=== PATIENT | female | born 1955 | race Caucasian/White ===

== ENCOUNTER → 2017-12-17 | Outpatient (CLI) | payer MEDICAID ==
[~2017-12-17] MED LIST: ACCUNEB SO1.25 MG/1 INH; ASA5UEC PO; ASPIR 8181 MG PO; ASPIRIN EC325 M1 PO; ASPIRIN EC81 M1 PO; ATORVASTATIN CA40 MG PO; B12INJ IM; BENADRYL25 MG PO; CARDIZEM CD120 MG PO; CARDIZEM CD180 MG PO; CARDIZEM120 MG PO; CARTIA XT180 M1 PO; CENTRUM SILVER1 EAC4 PO; CIPRO500 MG PO; CLEOCIN HCL150 MG PO; CLEOCIN HCL300 MG PO; CLONIDINE0.1 PO; COLESTIPOL HCL1 G1 PO; CYMBALTA30 MG PO; DIGESTIVE PROB1 EACH PO; DIPHEN/ATROP PO; DRAMAMINE50 MG PO; DULOXETINE HCL60 MG PO; ELIQUIS5 MG PO; FIBER350 GM PO; FIBER625 MG PO; GEMFIBROZIL 60600 M1 PO; GEMFIBROZIL 60600 MG PO; HYDROCODON-ACE1 EAC8 PO; HYDROCODONE-AP1 EAC6 PO; HYDROCODONE-APA1 TA1 PO; IBUPROFEN 400400 M1 PO; IMDUR 30 MG TAB30 M1 PO; JANUMET 50-1,01 EACH PO; KEPPRA 500 MG500 M1 PO; KEPPRA XR750 MG PO; KEPPRA1000 MG PO; LEVEMIR SUBQ; LOPERAMIDE 2 MG2 M1 PO; MAGNESIUM400 MG PO; MAGOX 400400 MG PO; MEDROL16 MG PO; MELATONIN3 MG PO; MELATONIN5 M1 PO; MELOXICAM7.5 MG PO; METFORMIN HCL500 MG PO; MOBIC15 MG PO; MOTION SICKNESS25 MG PO; NEURONTIN 300300 M1 PO; NEXIUM40 MG PO; NITROSTAT0.4 MG SL; NORCO 10-325 T1 EACH PO; NORCO 5-325 TA1 EACH PO; NOVOLOG100 UNIT/1 SUBQ; NYSTATIN 100,0015 G1; OMEPRAZOLE20 M2 PO; PERCOCET 5-3251 EACH PO; PHENERGAN 25 MG25 M1 PO; PHENERGAN50 MG RECTAL; PLAVIX 75 MG TA75 M1 PO; PREDNISONE 10 M10 MG PO; PRILOSEC 20 MG20 MG PO; PRINIVIL20 MG PO; PROBIOTIC1 EAC1 PO; PROMETHAZINE D480 ML; PROVENTIL HFA6.7 G1 IN; ROBAXIN 750 MG750 M1 PO; SINGULAIR 10 MG10 M1 PO; SINGULAIR 10 MG10 MG PO; SPIRIVA INH; TESSALON PERLE100 MG PO; THERA M PLUS T1 EAC2 PO; ULTRACET TABLET1 TAB PO; UNICOMPLEX M TA1 TA1 PO; VIMPAT150 MG PO; ZANTAC 150MG T150 M1 PO; ZESTORETIC 20-1 EAC3 PO; ZOCOR40 MG PO; ZOFRAN 4 MG ORAL4 MG PO; ZOFRAN ODT4 MG PO; ZPAK PO
== END ==
LOC: M.NUC 12-08 08:00
DX: K31.84 Gastroparesis (principal); I10 Essential (primary) hypertension; I25.10 Atherosclerotic heart disease of native coronary artery without angina pectoris; J44.9 Chronic obstructive pulmonary disease, unspecified; K21.9 Gastro-esophageal reflux disease without esophagitis; E78.5 Hyperlipidemia, unspecified; I21.3 ST elevation (STEMI) myocardial infarction of unspecified site; G47.33 Obstructive sleep apnea (adult) (pediatric); Z90.49 Acquired absence of other specified parts of digestive tract; Z86.73 Personal history of transient ischemic attack (TIA), and cerebral infarction without residual deficits; Z90.710 Acquired absence of both cervix and uterus; Z87.891 Personal history of nicotine dependence

== ENCOUNTER 2018-05-20 12:31 | Inpatient (IN) | payer MEDICAID ==
[~2018-05-20] VITALS: Ht 162.6 cm; Wt 80.3 kg
[2018-05-20] VITALS (11 sets, daily range): BP systolic 13–189; BP diastolic 60–102
[~2018-05-20 12:31] MED LIST changes: -CLEOCIN HCL150 MG PO; -COLESTIPOL HCL1 G1 PO; -DULOXETINE HCL60 MG PO; -ELIQUIS5 MG PO; -MEDROL16 MG PO
[2018-05-20] MEDS ORDERED: BENADRYL25 MG PO (13:20)
[2018-05-20] MEDS ORDERED: MEDROL16 MG PO (13:21)
[2018-05-20] MEDS ORDERED: COLESTIPOL HCL1 G1 PO (13:22)
[2018-05-20] MEDS ORDERED: DULOXETINE HCL60 MG PO (13:22)
[2018-05-20 13:23] LABS: HEMATOCRIT 40.3 % (37.0-47.0); HEMOGLOBIN 13.5 gm/dL (12.0-15.0); MCHC 33.4 g/dL (28.0-37.0); MCV 80.8 fL (80.0-100.0); MPV 9.3 fl. (7.2-11.1); NUCLEATED RBCS 0 /100WBC; PLATELET COUNT* 253 thou/uL (150-400); RBC 4.99 mil/uL (4.20-5.00); RDW-CV 14.4 % (10.5-14.5)
[2018-05-20 13:33] LABS: ANION GAP 15 mmol/L (7-16); APTT 20.7 Seconds (25.0-31.3); BUN 15 mg/dL (7-18); CHLORIDE 103 mmol/L (98-107); CO2 24 mmol/L (21-32); CREATININE 0.9 mg/dL (0.6-1.3); GLUCOSE 230 mg/dL (70-99); INR 1.1; PROTIME 10.6 Seconds (9.20-11.50); SODIUM 142 mmol/L (136-145)
[2018-05-20 13:35] LABS: POTASSIUM 2.8 mmol/L (3.5-5.1)
[2018-05-20 13:43] LABS: ALBUMIN 4.3 g/dL (3.4-5.0); ALKALINE PHOSPHATASE 118 U/L (46-116); LIPASE 90 U/L (73-393); MAGNESIUM 1.2 mg/dL (1.8-2.4); NT-PRO BRAIN NAT PEPTIDE 316 pg/mL (<300); SGOT 31 U/L (15-37); SGPT 35 U/L (30-65); TOTAL BILIRUBIN 0.4 mg/dL (<0.1-1.0); TOTAL PROTEIN 7.7 g/dL (6.4-8.2); TROPONIN-I LEVEL <0.06 ng/mL (<0.06)
[2018-05-20 14:18] LABS: PLATELET ESTIMATE ADEQUATE
[2018-05-20 14:33] LABS: BE -6.3 mmol/L (-2 to +3); PCO2 42.6 mmHg (35.0-45.0); PO2 136.1 mmHg (75.0-100.0)
--- NOTE | 2018-05-20 14:46 | EKG ---
[place] [address] ELECTROCARDIOGRAM REPORT Name: JUSTINO CEDEÑO Room: [address] ADM IN .R.#: [id number] Admission: 05/20/18 Attend Phys: Melissa Barros Discharge: Date of : 57 Report #: [id number] THIS REPORT FOR: //name// [facility] ED Test Date: 2018-05-20 Test Time: 13:16:57 Pat Name: JUSTINO CEDEÑO Department: Room: Gender: F Registered Nurse Obstetrics: Joesph HURST : 1955 Requested By: Major Santizo Order Number: [id number] MD: Harrison Dotson Measurements Intervals [place] Rate: 127 P: 62 MS: 103 QRS: 16 QRSD: 110 T: 63 QT: 407 QTc: 592 Interpretive Statements Sinus tachycardia with ventricular bigeminy Prolonged QT interval Compared to ECG 05/05/2017 06:04:54 pvc's now present Prolonged QT interval now present Electronically Signed On 05-20-2018 14:45:50 CDT by Harrison Dotson [email or web address] <ELECTRONICALLY SIGNED> By: Harrison Dotson MD, FAC 05/20/18 1445 1316 1316 Harrison Dotson MD, [facility] /EPI
[2018-05-20 21:12] LABS: ALBUMIN 4.1 g/dL (3.4-5.0); CALCIUM 8.3 mg/dL (8.5-10.1); CREATININE 0.7 mg/dL (0.6-1.3); MAGNESIUM 2.4 mg/dL (1.8-2.4); POTASSIUM 4.7 mmol/L (3.5-5.1); TOTAL BILIRUBIN 0.4 mg/dL (<0.1-1.0); TOTAL PROTEIN 7.5 g/dL (6.4-8.2)
[2018-05-21] VITALS (15 sets, daily range): BP systolic 115–164; BP diastolic 54–89
[2018-05-21 03:12] LABS: ANION GAP 13 mmol/L (7-16); BUN 17 mg/dL (7-18); CALCIUM 7.8 mg/dL (8.5-10.1); CHLORIDE 104 mmol/L (98-107); CHOLESTEROL 123 mg/dL (<200); CO2 23 mmol/L (21-32); CREATININE 0.6 mg/dL (0.6-1.3); GLUCOSE 216 mg/dL (70-99); HDL CHOLESTEROL 31 mg/dL (>40); LDL CHOLESTEROL 49 mg/dL (<100); MAGNESIUM 1.8 mg/dL (1.8-2.4); POTASSIUM 4.2 mmol/L (3.5-5.1); SODIUM 140 mmol/L (136-145); TRIGLYCERIDE 219 mg/dL (<150); VLDL 44 mg/dL (<40)
[2018-05-21 03:14] LABS: SERUM ASSESSMENT CLEAR
[2018-05-21 09:32] LABS: BE -2.4 mmol/L (-2 to +3); HCO3 22.7 mmol/L (22.0-26.0); PCO2 40.7 mmHg (35.0-45.0); PO2 76.7 mmHg (75.0-100.0); pH 7.365 (7.340-7.450)
[2018-05-22] VITALS (12 sets, daily range): BP systolic 119–163; BP diastolic 57–85
[2018-05-22 04:10] LABS: BE -2.8 mmol/L (-2 to +3); HCO3 22.2 mmol/L (22.0-26.0); PCO2 39.2 mmHg (35.0-45.0); PO2 106.1 mmHg (75.0-100.0)
[2018-05-22 04:18] LABS: ABSOLUTE LYMPHOCYTES 0.5 thou/uL (0.8-5.3); ABSOLUTE MONOCYTES 0.3 thou/uL (0.0-1.2); ABSOLUTE NEUTROPHILS 6.9 thou/uL (1.6-8.1); BASOPHILS 0.1 %; HEMATOCRIT 33.6 % (37.0-47.0); HEMOGLOBIN 11.6 gm/dL (12.0-15.0); MCH 27.8 pg (26.0-34.0); MCHC 34.5 g/dL (28.0-37.0); MCV 80.6 fL (80.0-100.0); MPV 9.2 fl. (7.2-11.1); NUCLEATED RBCS 0 /100WBC; POLYS 88.9 %; RBC 4.18 mil/uL (4.20-5.00); RDW-CV 14.6 % (10.5-14.5); WBC 7.7 thou/uL (4.0-11.0)
[2018-05-22 04:27] LABS: CALCIUM 7.4 mg/dL (8.5-10.1); CREATININE 0.6 mg/dL (0.6-1.3)
[2018-05-22 04:37] LABS: PLATELET COUNT* 152 thou/uL (150-400)
--- NOTE | 2018-05-22 07:46 | CON ---
[address] [address] CONSULTATION Name: JUSTINO CEDEÑO Room: [address] ADM IN M.R.#: [id number] Admission: 05/20/18 Attend Phys: Melissa Barros Discharge: Date of : 57 Report #: [id number] THIS REPORT FOR: //name// CC: Hilda Meyers DATE OF SERVICE: 05/21/2018 REFERRING PHYSICIAN: Dr. Meyers. CHIEF COMPLAINT: Respiratory failure. HISTORY OF PRESENT ILLNESS: The patient is a 62-year-old female with history of seizure disorder. She was doing well, returned home from shopping. Shortly thereafter, she began to experience swelling of her tongue. It got to the point where she was brought to the Emergency Room, she was intubated for airway protection. The patient is sedated on a propofol drip, not able to provide any information; so therefore, the rest of the document is provided by flipClass input. PAST MEDICAL HISTORY: Significant for chronic abdominal pain, cholelithiasis, history of colitis, coronary artery disease. She has had TIA in the past, history of seizure disorder. In addition to the above, she has history of rheumatoid arthritis, COPD, sleep apnea, hypertension, and gastroesophageal reflux disorder. ALLERGIES: CYCLOPIROX, MORPHINE, CONTRAST DYE, PENICILLIN. REVIEW OF SYSTEMS: Not obtainable. FAMILY HISTORY: Noncontributory for the patient's age. MEDICATIONS: Consist of Solu-Medrol, propofol, aerosol treatments with DuoNeb. Apparently, one of her home medications had been lisinopril, this has been discontinued. She had also been on metformin in the past and Cymbalta in the past. PHYSICAL EXAMINATION: VITAL SIGNS: Blood pressure 134/68; respiratory rate 14, nonlabored; pulse rate 78, regular; temperature 97.5 degrees. GENERAL APPEARANCE: She is sedated. Endotracheal tube is in place. It is secured. GENITOURINARY: Zeng catheter in place. HEAD: Atraumatic. EYES: Pupils are round, equal, [place] [address] CONSULTATION Name: JUSTINO CEDEÑO Room: [address] IN [facility].#: [id number] Admission: 05/20/18 Attend Phys: Melissa Barros Discharge: Date of : 57 Report #: [id number] ORAL CAVITY: Unable to visualize cavity, the tongue is markedly swollen. NOSE: Nasal passages are patent. NECK: There is no adenopathy. There is marked fullness of the neck, specifically on the left side, almost a mass feeling effect to it. There was no fluctuation. CHEST: Coarse rhonchi throughout. No wheezes. CARDIOVASCULAR: Regular rhythm. ABDOMEN: Soft. No organomegaly or tenderness. EXTREMITIES: Without edema. Pulses are equal bilaterally. SKIN: Warm and dry. LYMPHATICS: Negative. ASSESSMENT AND PLAN: 1. Respiratory failure, intubated for airway protection of a swollen tongue. 2. Angioedema, most likely. Could very well be medication related. 3. Fullness of her neck of undetermined etiology. 4. History of hypertension. 5. History of coronary artery disease. 6. Chronic obstructive pulmonary disease. PLAN: CT of the neck will be obtained. Repeat arterial blood gases and they will be repeated tomorrow as well. Chest x-ray will be obtained. LABORATORY DATA: Her chest x-ray today showed ET tube in adequate position. There is rotation. There may be some atelectatic changes in the right upper lung field and blunting of the left costophrenic angle. Once it is visualized, the tongue is receding. As far as the swelling is concerned, efforts then will be made for G-tube trials and hopefully successful weaning and extubation. It may be a few days down the road for this to be accomplished. In the interim, we will continue with supportive care. Could also begin and consider tube feedings at some point for nutritional purposes. Is and Os should be monitored as well to make sure the patient does not get fluid overloaded. <ELECTRONICALLY SIGNED> By: Fernando Jones MD 05/22/18 0746 0821 [id number] Jones MD /nt
--- NOTE | 2018-05-22 14:43 | EKG ---
[place] [address] ELECTROCARDIOGRAM REPORT Name: JUSTINO CEDEÑO Room: [address] ADM IN M.R.#: [id number] Admission: 05/20/18 Attend Phys: Melissa Barros Discharge: Date of : 57 Report #: [id number] THIS REPORT FOR: //name// [facility] Test Date: 2018-05-21 Test Time: 08:59:13 Pat Name: JUSTINO CEDEÑO Department: Room: [address] Gender: F Instructional Leader: : 1955 Requested By: Harrison Dotson Order Number: [id number] Felice MD: Michael Nugent Measurements Intervals [place] Rate: 80 P: 75 MN: 151 QRS: 34 QRSD: 101 T: 197 QT: 511 QTc: 590 Interpretive Statements Sinus rhythm Abnormal R-wave progression, early transition Abnrm T, probable ischemia, anterolateral lds Prolonged QT interval Compared to ECG 05/20/2018 13:16:57 Possible ischemia now present Sinus tachycardia no longer present Ventricular premature complex(es) no longer present Electronically Signed On 05-22-2018 14:43:23 CDT by Michael Nugent [email or web address] <ELECTRONICALLY SIGNED> By: Michael Nugent MD, FAC 05/22/18 1443 0859 0859 Michael Nugent MD, FAC /EPI
--- NOTE | 2018-05-22 18:19 | CON ---
[address] [address] CONSULTATION Name: JUSTINO CEDEÑO Room: [address] ADM IN M.R.#: [id number] Admission: 05/20/18 Attend Phys: Melissa Barros Discharge: Date of : 57 Report #: [id number] THIS REPORT FOR: //name// CC: Hilda Meyers DATE OF SERVICE: 05/20/2018 TYPE OF REPORT: Cardiology consultation. HISTORY OF PRESENT ILLNESS: The patient is a 62-year-old white female who I was asked to see in the hospital today as she would develop respiratory failure. The history is obtained from the and some old records. The patient is currently intubated and unresponsive to voice. Apparently, the patient has been seen here at [facility] on multiple occasions. She actually had a heart catheterization by Dr. Crystal from the right radial artery back in 2013 when she had an elevated troponin. No ventriculogram was performed. The LAD had had only a 15% stenosis. The remaining coronary arteries were unremarkable. She has been treated medically since that time. She has been followed by my partner, Dr. Nugent in the Cardiology Clinic. She had a previous loop recorder implanted. It is unclear whether any arrhythmias were noted. Her last echocardiogram in 2016 showed a normal ejection fraction with left atrial enlargement and aortic sclerosis. The patient just saw Dr. Rupesh in the Cardiology Clinic in February when she was doing well. She stays fairly active. She did have a previous stroke affecting her speech that she apparently recovered from. The patient was doing well until this morning. She apparently noted her tongue was swelling and she felt short of breath. She had no itching or rash. There is no wheezing. She was brought to the Emergency Room. Because of impending airway compromise, she was electively intubated in the Emergency Room. She was transferred to the ICU and Cardiology consultation was requested. Apparently, she has had no recent shortness of breath, chest pain, palpitation, syncope or edema. PAST MEDICAL HISTORY: Significant for previous hysterectomy, hernia repair, cholecystectomy, hypertension, hyperlipidemia, glucose intolerance, sleep apnea and previous stroke. CURRENT MEDICATIONS: Consists of long list. She is on aspirin, Lipitor, clonidine, Plavix, diltiazem, Cymbalta, Nexium, Neurontin, gemfibrozil, Keppra, lisinopril, meloxicam, metformin, Phenergan and Janumet. ALLERGIES: She has intolerance to PENICILLIN and MORPHINE. FAMILY HISTORY: [place] [address] CONSULTATION Name: JUSTINO CEDEÑO Room: [address] ADM IN .R.#: [id number] Admission: 05/20/18 Attend Phys: Melissa Barros Discharge: Date of : 57 Report #: [id number] SOCIAL HISTORY: She is . She and her live in [place], [place]. She is not working at this time. She quit smoking in 2010. Rarely drinks alcohol. REVIEW OF SYSTEMS: She has had no history of asthma. She does have sleep apnea but intermittently only uses CPAP. She has no history of liver disease, kidney disease, cancer, psychiatric illness. PHYSICAL EXAMINATION: GENERAL: Revealed an elderly female who was lying in bed. She was intubated at that time. VITAL SIGNS: She had a blood pressure of 170/90 and pulse is 110. She is afebrile. HEENT: She was anicteric. Conjunctivae pink. Mucous members moist. She had swelling of the tongue noted. NECK: Difficult to assess. CHEST: Without wheezes. CARDIOVASCULAR: Regular rate and rhythm. No significant murmur. ABDOMEN: Soft. EXTREMITIES: Had no edema. Dorsalis pedis pulse cannot be palpated. SKIN: Cool and dry. NEUROLOGICAL: She is withdrawals from painful stimuli. RADIOLOGICAL DATA: Her ECG on admission showed ventricular bigeminy with a nonspecific intraventricular conduction defect. Her chest x-ray on admission revealed normal heart size, clear lung osborne. LABORATORY DATA: Her previous lab work included a sodium 142, potassium is only 2.8, creatinine 0.9 and glucose 230. Liver function studies were normal. Magnesium is 1.8. Her remaining lab work shows troponin 0.06. White blood cell count 16 and hemoglobin 13.5. IMPRESSION AND RECOMMENDATIONS: 1. Anaphylactic reaction. The patient was with swelling of her tongue. I would stop her angiotensin-converting enzyme inhibitor. 2. Hypertension. The patient has been on clonidine, calcium deacon and angiotensin-converting enzyme inhibitor. 3. Diabetes. 4. Hyperlipidemia. The patient is on a statin drug. 5. History of sleep apnea. 6. Previous stroke. The patient is on Plavix. 7. Previous tobacco abuse. <ELECTRONICALLY SIGNED> By: Harrison Dotson MD, FACC 05/22/18 1819 1628 [id number] Dotson MD, FACC /nt
[2018-05-23] VITALS (14 sets, daily range): BP systolic 109–193; BP diastolic 54–104
[2018-05-23 11:56] LABS: ALBUMIN 3.3 g/dL (3.4-5.0); CALCIUM 7.8 mg/dL (8.5-10.1); CREATININE 0.5 mg/dL (0.6-1.3); TOTAL BILIRUBIN 0.6 mg/dL (<0.1-1.0); TOTAL PROTEIN 6.8 g/dL (6.4-8.2)
[2018-05-23 12:32] LABS: POTASSIUM 2.8 mmol/L (3.5-5.1)
[2018-05-24] VITALS (17 sets, daily range): BP systolic 110–138; BP diastolic 51–70
[2018-05-24 02:43] LABS: MAGNESIUM 3.2 mg/dL (1.8-2.4)
[2018-05-24 02:48] LABS: POTASSIUM 4.2 mmol/L (3.5-5.1)
[2018-05-24 09:00] LABS: BE -8.6 mmol/L (-2 to +3); HCO3 20.3 mmol/L (22.0-26.0)
[2018-05-24 09:01] LABS: PCO2 55.9 mmHg (35.0-45.0); pH 7.178 (7.340-7.450)
[2018-05-24 11:11] LABS: BE -3.9 mmol/L (-2 to +3); HCO3 20.1 mmol/L (22.0-26.0); PO2 89.9 mmHg (75.0-100.0); pH 7.402 (7.340-7.450)
[2018-05-25] VITALS (26 sets, daily range): BP systolic 14–208; BP diastolic 63–112
[2018-05-25 03:55] LABS: BE -3.7 mmol/L (-2 to +3); HCO3 19.8 mmol/L (22.0-26.0); PCO2 30.7 mmHg (35.0-45.0); pH 7.428 (7.340-7.450)
[2018-05-26] VITALS (16 sets, daily range): BP systolic 152–193; BP diastolic 66–99
[2018-05-26 03:52] LABS: HEMATOCRIT 37.4 % (37.0-47.0); HEMOGLOBIN 12.7 gm/dL (12.0-15.0); MCH 27.6 pg (26.0-34.0); MCV 81.1 fL (80.0-100.0); MPV 9.5 fl. (7.2-11.1); RBC 4.61 mil/uL (4.20-5.00); RDW-CV 14.8 % (10.5-14.5); WBC 11.2 thou/uL (4.0-11.0)
[2018-05-26 05:13] LABS: POTASSIUM 3.2 mmol/L (3.5-5.1)
[2018-05-26 05:19] LABS: CALCIUM 8.3 mg/dL (8.5-10.1); CREATININE 0.6 mg/dL (0.6-1.3)
[2018-05-26 11:48] LABS: CALCIUM 6.7 mg/dL (8.5-10.1); CREATININE 0.4 mg/dL (0.6-1.3); POTASSIUM 3.2 mmol/L (3.5-5.1)
[2018-05-26 12:00] LABS: BE -0.5 mmol/L (-2 to +3); HCO3 21.8 mmol/L (22.0-26.0); PCO2 29.3 mmHg (35.0-45.0); pH 7.489 (7.340-7.450)
[2018-05-26 12:03] LABS: PO2 57.9 mmHg (75.0-100.0)
[2018-05-26 18:25] LABS: BE 2.4 mmol/L (-2 to +3); HCO3 23.9 mmol/L (22.0-26.0); PCO2 28.5 mmHg (35.0-45.0); PO2 63.2 mmHg (75.0-100.0); pH 7.541 (7.340-7.450)
[2018-05-26 19:50] LABS: MAGNESIUM 1.7 mg/dL (1.8-2.4)
[2018-05-26 19:55] LABS: POTASSIUM 2.7 mmol/L (3.5-5.1)
[2018-05-27] VITALS (20 sets, daily range): BP systolic 109–180; BP diastolic 55–143
[2018-05-27 07:45] LABS: BE 4.5 mmol/L (-2 to +3); HCO3 26.8 mmol/L (22.0-26.0); PCO2 33.1 mmHg (35.0-45.0); PO2 83.1 mmHg (75.0-100.0); pH 7.526 (7.340-7.450)
[2018-05-27 07:51] LABS: ALBUMIN 2.9 g/dL (3.4-5.0); CREATININE 0.5 mg/dL (0.6-1.3); TOTAL BILIRUBIN 0.7 mg/dL (<0.1-1.0); TOTAL PROTEIN 7.1 g/dL (6.4-8.2)
[2018-05-27 07:52] LABS: CALCIUM 8.9 mg/dL (8.5-10.1); POTASSIUM 3.7 mmol/L (3.5-5.1)
[2018-05-27 16:27] LABS: CALCIUM 9.1 mg/dL (8.5-10.1); CREATININE 0.6 mg/dL (0.6-1.3); POTASSIUM 3.5 mmol/L (3.5-5.1)
[2018-05-28] VITALS (17 sets, daily range): BP systolic 119–161; BP diastolic 46–87
[2018-05-28 04:12] LABS: HEMATOCRIT 42.2 % (37.0-47.0); MCH 27.2 pg (26.0-34.0); MCHC 33.2 g/dL (28.0-37.0); MCV 81.8 fL (80.0-100.0); MPV 9.2 fl. (7.2-11.1); RBC 5.16 mil/uL (4.20-5.00); RDW-CV 14.7 % (10.5-14.5); WBC 9.2 thou/uL (4.0-11.0)
[2018-05-28 04:27] LABS: ALBUMIN 2.9 g/dL (3.4-5.0); CALCIUM 8.6 mg/dL (8.5-10.1); CREATININE 0.5 mg/dL (0.6-1.3); MAGNESIUM 1.7 mg/dL (1.8-2.4); POTASSIUM 3.7 mmol/L (3.5-5.1); TOTAL BILIRUBIN 0.8 mg/dL (<0.1-1.0); TOTAL PROTEIN 6.1 g/dL (6.4-8.2)
[2018-05-28 10:09] LABS: CREATININE 0.7 mg/dL (0.6-1.3); MAGNESIUM 2.2 mg/dL (1.8-2.4); POTASSIUM 3.8 mmol/L (3.5-5.1)
[2018-05-29] VITALS (18 sets, daily range): BP systolic 132–169; BP diastolic 53–87
[2018-05-29 00:39] LABS: CALCIUM 9.2 mg/dL (8.5-10.1); CREATININE 0.7 mg/dL (0.6-1.3); MAGNESIUM 1.6 mg/dL (1.8-2.4); POTASSIUM 3.3 mmol/L (3.5-5.1)
[2018-05-29 08:08] LABS: CALCIUM 8.8 mg/dL (8.5-10.1); CREATININE 0.6 mg/dL (0.6-1.3); MAGNESIUM 1.5 mg/dL (1.8-2.4); POTASSIUM 4.2 mmol/L (3.5-5.1)
[2018-05-29 14:39] LABS: CALCIUM 8.2 mg/dL (8.5-10.1); CREATININE 0.8 mg/dL (0.6-1.3); MAGNESIUM 1.9 mg/dL (1.8-2.4); POTASSIUM 4.4 mmol/L (3.5-5.1)
[2018-05-29 23:49] LABS: CALCIUM 8.4 mg/dL (8.5-10.1); CREATININE 0.8 mg/dL (0.6-1.3); POTASSIUM 4.7 mmol/L (3.5-5.1)
[2018-05-30 02:00] VITALS: BP 151/69
[2018-05-30 04:00] VITALS: BP 175/92
[2018-05-30 04:49] LABS: HEMATOCRIT 37.6 % (37.0-47.0); HEMOGLOBIN 12.3 gm/dL (12.0-15.0); MCH 26.6 pg (26.0-34.0); MCHC 32.8 g/dL (28.0-37.0); MCV 81.2 fL (80.0-100.0); RBC 4.63 mil/uL (4.20-5.00); RDW-CV 14.7 % (10.5-14.5); WBC 11.6 thou/uL (4.0-11.0)
[2018-05-30 04:56] LABS: CALCIUM 8.1 mg/dL (8.5-10.1); CREATININE 0.5 mg/dL (0.6-1.3); MAGNESIUM 1.4 mg/dL (1.8-2.4)
[2018-05-30 04:58] LABS: POTASSIUM 3.6 mmol/L (3.5-5.1)
[2018-05-30 06:00] VITALS: BP 179/82
[2018-05-30 07:00] VITALS: BP 175/81
[2018-05-30 12:31] LABS: CALCIUM 7.8 mg/dL (8.5-10.1); CREATININE 0.5 mg/dL (0.6-1.3); POTASSIUM 4.1 mmol/L (3.5-5.1)
[2018-05-30 18:18] LABS: CALCIUM 8.5 mg/dL (8.5-10.1); CREATININE 0.7 mg/dL (0.6-1.3); POTASSIUM 4.4 mmol/L (3.5-5.1)
[2018-05-30 20:00] VITALS: BP 137/62
[2018-05-31] VITALS: BP 133/59
[2018-05-31 04:00] VITALS: BP 146/68
[2018-05-31 04:59] LABS: HEMATOCRIT 35.4 % (37.0-47.0); HEMOGLOBIN 11.8 gm/dL (12.0-15.0); MCH 27.1 pg (26.0-34.0); MCHC 33.3 g/dL (28.0-37.0); MCV 81.3 fL (80.0-100.0); MPV 8.9 fl. (7.2-11.1); RBC 4.35 mil/uL (4.20-5.00); RDW-CV 14.7 % (10.5-14.5); WBC 6.4 thou/uL (4.0-11.0)
[2018-05-31 05:35] LABS: CREATININE 0.6 mg/dL (0.6-1.3); MAGNESIUM 1.8 mg/dL (1.8-2.4); POTASSIUM 3.8 mmol/L (3.5-5.1)
[2018-05-31 08:00] VITALS: BP 137/62
[2018-05-31 11:53] LABS: ALBUMIN 2.6 g/dL (3.4-5.0); CREATININE 0.7 mg/dL (0.6-1.3); POTASSIUM 3.6 mmol/L (3.5-5.1); TOTAL BILIRUBIN 0.4 mg/dL (<0.1-1.0); TOTAL PROTEIN 5.2 g/dL (6.4-8.2)
[2018-05-31 12:00] VITALS: BP 133/49
[2018-05-31 20:00] VITALS: BP 131/61
[2018-06-01] VITALS: BP 129/63
[2018-06-01 04:00] VITALS: BP 114/62
[2018-06-01 04:59] LABS: ALBUMIN 2.4 g/dL (3.4-5.0); CALCIUM 8.3 mg/dL (8.5-10.1); CREATININE 0.5 mg/dL (0.6-1.3); POTASSIUM 3.7 mmol/L (3.5-5.1); TOTAL BILIRUBIN 0.5 mg/dL (<0.1-1.0); TOTAL PROTEIN 5.2 g/dL (6.4-8.2)
[2018-06-01 05:01] LABS: ABSOLUTE LYMPHOCYTES 1.5 thou/uL (0.8-5.3); ABSOLUTE MONOCYTES 0.5 thou/uL (0.0-1.2); ABSOLUTE NEUTROPHILS 4.7 thou/uL (1.6-8.1); BASOPHILS 0.1 %; EOSINOPHILS 0.3 %; HEMATOCRIT 32.4 % (37.0-47.0); HEMOGLOBIN 10.8 gm/dL (12.0-15.0); MCH 27.6 pg (26.0-34.0); MCHC 33.5 g/dL (28.0-37.0); MCV 82.3 fL (80.0-100.0); MPV 9.1 fl. (7.2-11.1); NUCLEATED RBCS 0 /100WBC; PLATELET COUNT* 137 thou/uL (150-400); POLYS 69.6 %; RBC 3.93 mil/uL (4.20-5.00); RDW-CV 14.5 % (10.5-14.5); WBC 6.7 thou/uL (4.0-11.0)
[2018-06-01 08:00] VITALS: BP 164/77
[2018-06-01] MEDS ORDERED: ELIQUIS5 MG PO (10:37)
[2018-06-01] MEDS ORDERED: CLEOCIN HCL150 MG PO (10:40)
[2018-06-01] MEDS ORDERED: PREDNISONE 10 M10 MG PO (10:51)
[2018-06-01 10:52] VITALS: BP 164/77
--- NOTE | 2018-06-16 08:41 | CON ---
[address] [address] CONSULTATION Name: JUSTINO CEDEÑO Room: [address] IN M.R.#: [id number] Admission: 05/20/18 Attend Phys: Melissa Barros Discharge: 06/01/18 Date of : 57 Report #: [id number] THIS REPORT FOR: //name// CC: Hilda Meyers DATE OF SERVICE: 05/26/2018 REASON FOR ADMISSION: Angioedema. REASON FOR NEPHROLOGY CONSULTATION: Increased urine output. HISTORY OF PRESENT ILLNESS: This is a 62-year-old female whose has past medical history of coronary artery disease. She has history of seizures and she has history of hypertension who came in initially on 05/20/2018 with swelling of her tongue and she had to be intubated. It was believed that her angioedema was because of her long-term lisinopril, which was stopped and she was treated with steroids. She is currently still on the ventilator and weaning trials are in progress. She also was found to have left lower lobe pneumonia and is being treated for that. Nephrology today has been consulted because the urine output has been increasing and yesterday in the last 24 hours, urine output was around 6 liters, her sodium level is still maintaining, her sodium level this morning was 143. She is having problems with hypomagnesemia and hypokalemia, and that is being replaced. She is currently very agitated, so she does have a sitter by her side. Her blood pressure has also been hard to control and currently it is doing better and she is on labetalol and hydralazine as per primary team. REVIEW OF SYSTEMS: The patient is currently intubated and I cannot obtain review of systems. PAST MEDICAL AND SURGICAL HISTORY: Include history of coronary artery disease, CVA, seizures, fibromyalgia, erosive arthritis, COPD, sleeps with a CPAP, hypertension, hyperlipidemia, GERD, anxiety, hysterectomy. Gallbladder removal, hernia repair, heart monitor implantation, which was then removed. ALLERGIES: CICLOPIROX, MORPHINE, CONTRAST, PENICILLINS. HOME MEDICATIONS: Include diphenhydramine, methylprednisolone, colestipol, , nitroglycerin, Lactobacillus, methocarbamol, gabapentin, Nexium, diltiazem, Keppra, atorvastatin, gemfibrozil, clonidine, lisinopril. FAMILY HISTORY: Cannot obtain right now. SOCIAL HISTORY: As per the patient's chart, the patient was a former smoker, does not use [place] [address] CONSULTATION Name: JUSTINO CEDEÑO Room: [address] IN M.R.#: [id number] Admission: 05/20/18 Attend Phys: Melissa Barros Discharge: 06/01/18 Date of : 57 Report #: [id number] PHYSICAL EXAMINATION: VITAL SIGNS: Blood pressure is 178/76, pulse rate is 120, temperature is 37.4 and pulse ox is 100% on 35% FIO2, respiratory rate is 20. GENERAL: She is currently intubated and quite restless. HEAD, EYES, EARS, NOSE, AND THROAT: Mucous membranes cannot be assessed. She has an ET tube in place. NECK: There is no JVD. CHEST: Bilateral diminished breath sounds, but no crackles or wheezing. CARDIOVASCULAR: S1, S2 normal. No murmurs. She is tachycardic. ABDOMEN: Soft, nondistended, nontender. Bowel sounds are present. EXTREMITIES: There is no lower extremity edema, symmetrical extremities. SKIN: Warm and dry. NEUROLOGIC: She is currently restless. PSYCHIATRIC: Cannot assess right now. LABORATORY DATA: From today, WBC is 11.3, hemoglobin 12.7, platelet count is 220. Sodium was 143, potassium was 3.2, magnesium was 1.6, BUN was 17, creatinine was 0.6. Other labs were reviewed. IMAGING: Head CT and chest x-ray and other x-rays were reviewed. ASSESSMENT AND PLAN: 1. Polyuria: Diabetic acidosis is definitely a possibility. Urine sodium, although is quite high. Urine osmolality and serum osmolality need to be checked and these are pending. For now, we should put her on half normal saline 125 mL an hour to prevent hypernatremia. Discussed with nursing. Sodium should be checked every 8 hours and we should be notified if it is going above or more than 145. 2. Hypertension: Blood pressure has been little hard to control, but she is also very restless. Continue current medication regimen for now and we will adjust further medications when she is more calm. 3. Acute hypoxic respiratory failure. The patient is being treated for pneumonia. 4. Angioedema, likely because of lisinopril. The patient is being treated for that and looks like it is improving. Pulmonology is following the patient. 5. History of seizure disorder. 6. Hypomagnesemia, this is being replaced. 7. Hypokalemia, this is also being replaced. Both hypokalemia and hypomagnesemia is probably because of polyuria. Thank you for this consultation and we will continue to follow along with you. Discussed with the patient's nurses.. <ELECTRONICALLY SIGNED> By: Dana Tello MD 06/16/18 0841 1149 [id number] kira Herzog
== END 2018-06-01 11:58 | disposition home or self-care (01) | DRG 915 ==
LOC: M.ERS 12:31 → M.ICU 13:13 → M.TBA-ER 13:13 → M.ICU 13:28 → M.2W 05-30 17:51
PROVIDERS: Emergency Medicine Emergency Medical Services; Family Medicine; Internal Medicine; Internal Medicine Cardiovascular Disease; Internal Medicine Nephrology; Internal Medicine Pulmonary Disease; ADMIT Internal Medicine
DX: T88.6XXA Anaphylactic reaction due to adverse effect of correct drug or medicament properly administered, initial encounter (principal); J96.01 Acute respiratory failure with hypoxia; J15.9 Unspecified bacterial pneumonia; G92 Toxic encephalopathy; E87.0 Hyperosmolality and hypernatremia; E23.2 Diabetes insipidus; I69.351 Hemiplegia and hemiparesis following cerebral infarction affecting right dominant side; T78.3XXA Angioneurotic edema, initial encounter; I10 Essential (primary) hypertension; F03.90 Unspecified dementia, unspecified severity, without behavioral disturbance, psychotic disturbance, mood disturbance, and anxiety; I48.91 Unspecified atrial fibrillation; J20.8 Acute bronchitis due to other specified organisms; B95.61 Methicillin susceptible Staphylococcus aureus infection as the cause of diseases classified elsewhere; R35.8 Other polyuria; E78.00 Pure hypercholesterolemia, unspecified; M06.9 Rheumatoid arthritis, unspecified; J44.9 Chronic obstructive pulmonary disease, unspecified; E11.9 Type 2 diabetes mellitus without complications; G40.909 Epilepsy, unspecified, not intractable, without status epilepticus; K21.9 Gastro-esophageal reflux disease without esophagitis; G47.30 Sleep apnea, unspecified; F41.9 Anxiety disorder, unspecified; M79.7 Fibromyalgia; I25.10 Atherosclerotic heart disease of native coronary artery without angina pectoris; E83.42 Hypomagnesemia; E87.6 Hypokalemia; T46.4X5A Adverse effect of angiotensin-converting-enzyme inhibitors, initial encounter; Y92.89 Other specified places as the place of occurrence of the external cause; I25.2 Old myocardial infarction; Z90.710 Acquired absence of both cervix and uterus; Z90.49 Acquired absence of other specified parts of digestive tract; Z87.891 Personal history of nicotine dependence; Z79.02 Long term (current) use of antithrombotics/antiplatelets; Z79.82 Long term (current) use of aspirin; Z79.899 Other long term (current) drug therapy; Z88.5 Allergy status to narcotic agent; Z88.0 Allergy status to penicillin; Z88.8 Allergy status to other drugs, medicaments and biological substances; Z91.041 Radiographic dye allergy status; Z82.49 Family history of ischemic heart disease and other diseases of the circulatory system

== ENCOUNTER → 2018-12-13 | Outpatient (CLI) | payer MEDICAID ==
[~2018-12-13] MED LIST changes: +BENTYL 10 MG CA10 M1 PO; +CLEOCIN HCL150 MG PO; +COLESTIPOL HCL1 G1 PO; +DIPHENHIST50 MG PO; +DULOXETINE HCL60 MG PO; +ELIQUIS2.5 MG PO; +ELIQUIS5 MG PO; +HYDROCHLOROTH12.5 M1 PO; +LEVETIRACETAM1000 MG PO; +MEDROL16 MG PO; +MICROZIDE12.5 MG PO; +MOBIC7.5 MG PO
== END ==
LOC: M.LAB 08:51
DX: I48.91 Unspecified atrial fibrillation (principal)

== ENCOUNTER 2018-12-15 13:35 | Inpatient (IN) | payer MEDICAID ==
[~2018-12-15] VITALS: Ht 172.7 cm; Wt 67.1 kg
[~2018-12-15 13:35] MED LIST changes: -BENTYL 10 MG CA10 M1 PO; -DIPHENHIST50 MG PO; -ELIQUIS2.5 MG PO; -HYDROCHLOROTH12.5 M1 PO; -LEVETIRACETAM1000 MG PO; -MICROZIDE12.5 MG PO; -MOBIC7.5 MG PO
[2018-12-15 14:01] VITALS: BP 153/83
[2018-12-15] MEDS ORDERED: ELIQUIS2.5 MG PO (14:37)
[2018-12-15] MEDS ORDERED: JANUMET 50-1,01 EACH PO (14:38)
[2018-12-15 14:43] LABS: ABSOLUTE LYMPHOCYTES 1.3 thou/uL (0.8-5.3); ABSOLUTE MONOCYTES 0.4 thou/uL (0.0-1.2); ABSOLUTE NEUTROPHILS 4.4 thou/uL (1.6-8.1); BASOPHILS 0.5 %; EOSINOPHILS 0.6 %; HEMATOCRIT 38.3 % (37.0-47.0); HEMOGLOBIN 13.1 gm/dL (12.0-15.0); LYMPHOCYTES 21.8 %; MCH 25.7 pg (26.0-34.0); MCHC 34.3 g/dL (28.0-37.0); MONOCYTES 5.9 %; MPV 9.1 fl. (7.2-11.1); NUCLEATED RBCS 0 /100WBC; PLATELET COUNT* 207 thou/uL (150-400); POLYS 71.2 %; RDW-CV 15.7 % (10.5-14.5); WBC 6.1 thou/uL (4.0-11.0)
[2018-12-15 14:49] LABS: ANION GAP 11 mmol/L (7-16); BUN 14 mg/dL (7-18); CALCIUM 9.3 mg/dL (8.5-10.1); CHLORIDE 98 mmol/L (98-107); CO2 27 mmol/L (21-32); CREATININE 0.8 mg/dL (0.6-1.3); GLUCOSE 182 mg/dL (70-99); POTASSIUM 3.4 mmol/L (3.5-5.1); SODIUM 136 mmol/L (136-145)
[2018-12-15 14:52] LABS: PROTIME 9.9 Seconds (9.20-11.50)
[2018-12-15] MEDS ORDERED: BENTYL 10 MG CA10 M1 PO ×2 (14:53→15:09)
[2018-12-15] MEDS ORDERED: MICROZIDE12.5 MG PO (14:53)
[2018-12-15] MEDS ORDERED: DIPHENHIST50 MG PO ×2 (14:53→15:09)
[2018-12-15] MEDS ORDERED: PHENERGAN 25 MG25 M1 PO ×2 (14:54→15:11)
[2018-12-15] MEDS ORDERED: LOPERAMIDE 2 MG2 M1 PO (14:54)
[2018-12-15] MEDS ORDERED: MOBIC7.5 MG PO ×2 (14:54→15:11)
[2018-12-15 15:09] LABS: ALBUMIN 4.3 g/dL (3.4-5.0); ALKALINE PHOSPHATASE 121 U/L (46-116); LIPASE 152 U/L (73-393); MAGNESIUM 1.1 mg/dL (1.8-2.4); NT-PRO BRAIN NAT PEPTIDE 497 pg/mL (<300); SGOT 35 U/L (15-37); SGPT 44 U/L (30-65); TOTAL BILIRUBIN 0.3 mg/dL (<0.1-1.0); TOTAL PROTEIN 7.8 g/dL (6.4-8.2); TROPONIN-I LEVEL <0.06 ng/mL (<0.06)
[2018-12-15] MEDS ORDERED: HYDROCHLOROTH12.5 M1 PO (15:10)
[2018-12-15] MEDS ORDERED: LEVETIRACETAM1000 MG PO (15:10)
[2018-12-15 17:05] VITALS: BP 195/93
[2018-12-15 17:18] VITALS: BP 195/93
[2018-12-15 17:41] VITALS: BP 195/93
--- NOTE | 2018-12-15 18:45 | NUR ---
TRACING SR. BP ELEVATED. DR NOTIFIED. PT UNSURE OF HOME MEDICATIONS. NORVASC ORDERED. CALLED AND MEDICATIONS VERIFIED. ONLY ONE CORRECTION IN [place] [employer] NEEDED TO BE MADE. PT CONTINUES TO SAY SHE DOES NOT TAKE CLONIDINE PATCH AND MEDICATION DOES NOT SOUND FAMILIAR. PT C/O OF CHEST/BACK PAIN. PT SEEN BY DR. DIAZ. PRN FENTANYL ADMININSTERED PER MAR WITH PARTIAL RELIEF IN PAIN.
[2018-12-15 19:45] VITALS: BP 165/70
--- NOTE | 2018-12-15 21:37 | NUR ---
INITAL ASSESMENT COMPLETED AT 1945. PT DENIED CHEST PAIN, PRESSURE OR SHORTNESS OF AIR. INSTRUCTIONS GIVEN REGARDING NPO AFTER MIDNIGHT FOR POSSIBLE TESTS IN AM. CALL LIGHT IN REACH, PT USING APPROPRIATELY.
--- NOTE | 2018-12-15 23:04 | NUR ---
HOURLY ROUNDING DONE. PT DENIES CHEST PAIN, PRESSURE OR SHORTNESS OF AIR.
[2018-12-16] VITALS: BP 147/66
[2018-12-16 04:00] VITALS: BP 180/79
--- NOTE | 2018-12-16 04:17 | NUR ---
PT RANG CALL LIGHT AT 0410 AND REPORTED SHARP CHEST PAIN RATED AT 10. PT GIVEN 50 MCH FENTANYL IV. 12 LEAD EKG IN PROGRESS.
--- NOTE | 2018-12-16 05:03 | NUR ---
pt resting quietly at this time. pt rates pain at 2.
--- NOTE | 2018-12-16 06:38 | NUR ---
PT HAD ONE EPISODE OF CHEST PAIN AT 0415. PAIN RELIEVED BY 50 MCG FENTANYL IV AND 4 MG ZOFRAN IV.
[2018-12-16 08:10] VITALS: BP 184/79
[2018-12-16 08:32] LABS: CALCIUM 9.5 mg/dL (8.5-10.1); CREATININE 0.7 mg/dL (0.6-1.3)
--- NOTE | 2018-12-16 09:00 | NUR ---
REC'D REPORT FROM NOC RN, ASSUMED CARE OF PT APPROX 0730. A&OX4, ABLE TO COMMUNICATE NEEDS TO STAFF. PRINTING SPECIALIST IN PLACE, SR. O2 SATS 98% ON 2L/MIN NC. ASSESSMENT COMPLETED. VS OBTAINED. PT IS NPO STATUS FOR CARDIOLOGY CONSULT. CALL LIGHT IN REACH. HOURLY ROUNDING FOR SAFETY AND PT NEEDS.
[2018-12-16 09:28] LABS: ABSOLUTE LYMPHOCYTES 1.3 thou/uL (0.8-5.3); ABSOLUTE MONOCYTES 0.3 thou/uL (0.0-1.2); BASOPHILS 0.3 %; EOSINOPHILS 0.5 %; HEMATOCRIT 39.6 % (37.0-47.0); HEMOGLOBIN 13.4 gm/dL (12.0-15.0); LYMPHOCYTES 28.2 %; MCH 25.3 pg (26.0-34.0); MCHC 33.8 g/dL (28.0-37.0); MCV 74.7 fL (80.0-100.0); MPV 8.7 fl. (7.2-11.1); NUCLEATED RBCS 0 /100WBC; PLATELET COUNT* 204 thou/uL (150-400); RDW-CV 15.6 % (10.5-14.5); WBC 4.6 thou/uL (4.0-11.0)
--- NOTE | 2018-12-16 10:26 | EKG ---
[place] [address] ELECTROCARDIOGRAM REPORT Name: JUSTINO CEDEÑO Room: [address] ADM IN M.R.#: [id number] Admission: 12/15/18 Attend Phys: Jordan Dominguez Discharge: Date of : 57 Report #: [id number] THIS REPORT FOR: //name// [facility] ED Test Date: 2018-12-15 Test Time: 14:13:57 Pat Name: JUSTINO CEDEÑO Department: Room: [facility] Gender: F Piece Cutter: [facility] : 1955 Requested By: Mart Hughes Order Number: [id number] MD: Eric Chand Measurements Intervals [place] Rate: 95 P: 59 [place]: 156 QRS: 0 QRSD: 98 T: 56 QT: 433 QTc: 545 Interpretive Statements Sinus rhythm Abnormal R-wave progression, early transition Borderline repolarization abnormality Prolonged QT interval Compared to ECG 05/21/2018 08:59:13 Possible ischemia no longer present Electronically Signed On 12-16-2018 10:25:57 BALE OPENER by Eric Chand [email or web address] <ELECTRONICALLY SIGNED> By: Eric Chand MD, [facility] 12/16/18 1025 1413 1413 Eric Chand MD, [facility] /EPI
--- NOTE | 2018-12-16 10:31 | EKG ---
[place] [address] ELECTROCARDIOGRAM REPORT Name: JUSTINO CEDEÑO Room: [address] ADM IN M.R.#: [id number] Admission: 12/15/18 Attend Phys: Jordan Dominguez Discharge: Date of : 57 Report #: [id number] THIS REPORT FOR: //name// [facility] Test Date: 2018-12-16 Test Time: 04:20:24 Pat Name: JUSTINO CEDEÑO Department: Room: [address] Gender: F Pool Manager: JUAN FRANCISCO : 1955 Requested By: Osiel Bob Order Number: [id number] Felice MD: Eric Chand Measurements Intervals [place] Rate: 89 P: 17 [place]: 144 QRS: -16 QRSD: 97 T: 56 QT: 422 QTc: 514 Interpretive Statements Sinus rhythm Borderline left axis deviation Abnormal R-wave progression, early transition Nonspecific T abnormalities, lateral leads Prolonged QT interval Baseline wander in lead(s) V4 Compared to ECG 05/21/2018 08:59:13 T-wave abnormality now present Possible ischemia no longer present Electronically Signed On 12-16-2018 10:31:21 APPLICATION SECURITY ENGINEER by Eric Chand [email or web address] <ELECTRONICALLY SIGNED> By: Eric Chand MD, FACC 12/16/18 1031 0420 0420 Eric Chand MD, FACC /EPI
[2018-12-16 12:00] VITALS: BP 216/85
--- NOTE | 2018-12-16 12:55 | NUR ---
Pt sound asleep when CM went to assess, will f/u later
[2018-12-16 13:22] LABS: CHOLESTEROL 147 mg/dL (<200); HDL CHOLESTEROL 36 mg/dL (>40); LDL CHOLESTEROL 62 mg/dL (<100); TC:HDL 4.1 Ratio (Not establshd); TRIGLYCERIDE 248 mg/dL (<150); TROPONIN-I LEVEL <0.06 ng/mL (<0.06); VLDL 50 mg/dL (<40)
[2018-12-16 13:26] LABS: SERUM ASSESSMENT Clear
[2018-12-16 14:06] VITALS: BP 216/85
[2018-12-16 14:38] VITALS: BP 216/85
--- NOTE | 2018-12-16 15:40 | 2DMMODE ---
[place] [address] 2 D/M-MODE ECHOCARDIOGRAM Name: JUSTINO CEDEÑO Room: [facility] IN [facility]#: [id number] Admission: 12/15/18 Attend Phys: Osiel Bob Discharge: Date of : 57 Date of Service: 12/16/18 1540 Report #: [id number] THIS REPORT FOR: //name// APPROVED REPORT Study performed: 12/16/2018 14:17:16 EXAM: Comprehensive 2D, Doppler, and color-flow Echocardiogram Patient Location: In-Patient Room #: 222 Status: routine BSA: 1.80 HR: 107 bpm BP: 216/85 mmHg Rhythm: NSR Other Information Study Quality: Good Indications Dyspnea Chest Pain 2D Dimensions IVSd: 12.98 (7-11mm) LVOT Diam: 20.39 (18-24mm) LVDd: 50.79 mm PWd: 12.62 (7-11mm) Ascending Ao: 30.17 (22-36mm) LVDs: 32.79 (25-40mm) Aortic Root: 30.75 mm Volumes Left Atrial Volume (Systole) LA ESV Index: 20.70 mL/m2 Aortic Valve AoV Peak Gary.: 1.23 m/s AO Peak Gr.: 6.04 mmHg LVOT Max P.25 mmHg AO Mean Gr.: 3.67 mmHg LVOT Mean P.46 mmHg LVOT Max V: 0.90 m/s AO V2 VTI: 22.94 cm LVOT Mean V: 0.55 m/s TAL (VTI): 2.17 cm2 LVOT V1 VTI: 15.26 cm Mitral Valve MV Decel. Time: 94.38 ms MV PHT: 27.37 ms MVA (PHT): 8.04 [place]2 [place] [address] 2 D/M-MODE ECHOCARDIOGRAM Name: JUSTINO CEDEÑO Room: [address] IN ..#: [id number] Admission: 12/15/18 Attend Phys: Osiel Bob Discharge: Date of : 57 Date of Service: 12/16/18 1540 Report #: [id number] TDI Medial E' Gary.: 0.08 m/s Lateral E' Gary.: 0.08 m/s Pulmonary Valve PV Peak Gary.: 1.10 m/s PV Peak Gr.: 4.87 mmHg Left Ventricle The left ventricle is normal size. There is normal LV segmental wall motion. Borderline concentric left ventricular hypertrophy. Left ventricular systolic function is normal. The left ventricular ejection fraction is within the normal range. LVEF is 60%. Grade I - abnormal relaxation pattern. Right Ventricle The right ventricle is normal size. The right ventricular systolic function is normal. Atria The left atrium size is normal. The right atrium size is normal. Aortic Valve The aortic valve is normal in structure. No aortic regurgitation is present. There is no aortic valvular stenosis. Mitral Valve The mitral valve is normal in structure. There is no mitral valve regurgitation noted. No evidence of mitral valve stenosis. Tricuspid Valve The tricuspid valve is normal in structure. Unable to assess PA pressure. Trace tricuspid regurgitation. Pulmonic Valve The pulmonary valve is normal in structure. There is no pulmonic valvular regurgitation. Great Vessels The aortic root is normal in size. IVC is normal in size and collapses >50% [place] [address] 2 D/M-MODE ECHOCARDIOGRAM Name: JUSTINO CEDEÑO Room: [address] IN ..#: [id number] Admission: 12/15/18 Attend Phys: Osiel Bob Discharge: Date of : 57 Date of Service: 12/16/18 1540 Report #: [id number] Pericardium There is no pericardial effusion. <Conclusion> The left ventricle is normal size. Borderline concentric left ventricular hypertrophy. Left ventricular systolic function is normal. The left ventricular ejection fraction is within the normal range. LVEF is 60%. Grade I - abnormal relaxation pattern. The right ventricle is normal size. The left atrium size is normal. The aortic valve is normal in structure. The mitral valve is normal in structure. IVC is normal in size and collapses >50% with inspiration. There is no pericardial effusion. There is normal LV segmental wall motion. <ELECTRONICALLY SIGNED> By: Eric Chand MD, FACC 12/16/18 1540 1540 1540 Eric Chand MD, FACC /INF
--- NOTE | 2018-12-19 15:49 | CON ---
[address] [address] CONSULTATION Name: JUSTINO CEDEÑO Room: [address] IN M.R.#: [id number] Admission: 12/15/18 Attend Phys: Jordan Dominguez Discharge: 12/16/18 Date of : 57 Report #: [id number] THIS REPORT FOR: //name// CC: Hilda Bob DATE OF SERVICE: 12/16/2018 CARDIOLOGY CONSULTATION HISTORY OF PRESENT ILLNESS: The patient is a 63-year-old white female who I was asked to see in the hospital today after she complained of chest pain. The patient has an extensive and complicated past medical history. Unfortunately, not all of her old records are available. She has had multiple hospitalizations here at [facility]. She was actually seen by Dr. Crystal back in 2013 with chest pain. He performed a cardiac catheterization in 2013 that showed no significant coronary artery disease. Ventriculogram was not performed. In 2015, Dr. Nugent implanted a paraffiner here at [facility] using a [employer]. She apparently had had a previous stroke. The monitor was removed last year because the patient complained of the monitor causing chest pain. I actually saw her in consultation last April. The patient had swelling of her tongue and had to be intubated. She was eventually extubated and discharged. She is felt to have angioedema. She was eventually discharged home. The patient actually just saw my nurse practitioner 2 days ago. No changes were made in her medications at that time. The patient came to the Emergency Room yesterday complaining of left-sided chest pain. It is worse when she moved. She denied any trauma, is not related to food. She is admitted for further evaluation and treatment. PAST MEDICAL HISTORY: Significant for previous hysterectomy, hernia repair. She has a history of seizure disorder and is followed at [facility]. She has sleep apnea, but no longer uses CPAP. MEDICATIONS: At this time includes Eliquis because of a history of atrial fibrillation, Lipitor, Cardizem-CD, Catapres, Colestid, Bentyl, Cymbalta, Nexium, Neurontin, Lopid, Microzide, Keppra, Mobic, Robaxin, Phenergan. ALLERGIES: SHE HAS INTOLERANCE TO PENICILLIN, LISINOPRIL, AND MORPHINE. FAMILY HISTORY: Her mother had heart disease. SOCIAL HISTORY: She is . She and her live in [place]. She is not working at this time. Quit smoking years ago[place] [address] CONSULTATION Name: JUSTINO CEDEÑO Room: [address] IN M.R.#: [id number] Admission: 12/15/18 Attend Phys: Jordan Dominguez Discharge: 12/16/18 Date of : 57 Report #: [id number] REVIEW OF SYSTEMS: No history of stroke. No history of liver disease, kidney disease, cancer, psychiatric illness. PHYSICAL EXAMINATION: GENERAL: Revealed a middle-aged frail appearing female, lying in bed. She appeared in no distress. VITAL SIGNS: She has a blood pressure of 150/90, pulse is 90. She is afebrile. HEENT: She was anicteric, conjunctiva pink. Mucous membranes moist. NECK: Veins do not appear distended. Neck is supple. CHEST: Clear to auscultation. CARDIOVASCULAR: Regular rate and rhythm. ABDOMEN: Soft. EXTREMITIES: No edema. SKIN: Warm and dry. NEUROLOGIC: Nonfocal. Her ECG showed a sinus rhythm, nonspecific ST segment change. Her workup, she had an echocardiogram last April that showed an ejection fraction of 60%, left atrial enlargement, mild aortic sclerosis. She had a portable chest x-ray yesterday that showed evidence of atelectasis. LABORATORY DATA: She actually had lab work, sodium 137, creatinine 0.7. Liver function studies were normal. Troponins all 0.06. White blood cell count 4.6, hemoglobin 13.4. IMPRESSION AND RECOMMENDATIONS: 1. Chest pain. Reason unclear. Previous heart catheterization was normal. Suspect her chest pain is noncardiac. Recommend no further cardiac evaluation. 2. History of previous stroke. 3. History of atrial fibrillation. The patient is chronically anticoagulated. 4. History of sleep apnea. 5. Previous tobacco abuse. 6. Hyperlipidemia. The patient is on a statin drug. 7. Glucose intolerance. 8. History of seizure disorder. The patient is on Keppra. She is followed at [facility]. 9. History of sleep apnea. The patient no longer using her CPAP. <ELECTRONICALLY SIGNED> By: Harrison Doston MD, FACC 12/19/18 1549 1316 1800David Brooke Doston MD, FAC /nt
== END 2018-12-16 15:45 | disposition home or self-care (01) | DRG 313 ==
LOC: M.ERS 13:35 → M.TBA-ER 15:27 → M.2W 15:27
PROVIDERS: Family Medicine; ADMIT Internal Medicine
DX: R07.9 Chest pain, unspecified (principal); J98.11 Atelectasis; M06.9 Rheumatoid arthritis, unspecified; J44.9 Chronic obstructive pulmonary disease, unspecified; I10 Essential (primary) hypertension; E78.00 Pure hypercholesterolemia, unspecified; K21.9 Gastro-esophageal reflux disease without esophagitis; F41.9 Anxiety disorder, unspecified; G40.909 Epilepsy, unspecified, not intractable, without status epilepticus; E78.5 Hyperlipidemia, unspecified; I48.91 Unspecified atrial fibrillation; E74.39 Other disorders of intestinal carbohydrate absorption; I25.2 Old myocardial infarction; I69.392 Facial weakness following cerebral infarction; Z90.710 Acquired absence of both cervix and uterus; Z88.0 Allergy status to penicillin; Z88.8 Allergy status to other drugs, medicaments and biological substances; Z88.6 Allergy status to analgesic agent; Z91.041 Radiographic dye allergy status; Z87.891 Personal history of nicotine dependence; Z82.49 Family history of ischemic heart disease and other diseases of the circulatory system

== ENCOUNTER 2019-01-25 10:11 | Emergency (ER) | payer MEDICAID ==
[~2019-01-25] VITALS: Ht 172.7 cm; Wt 63.5 kg
[~2019-01-25 10:11] MED LIST changes: +BENTYL 10 MG CA10 M1 PO; +DIPHENHIST50 MG PO; +ELIQUIS2.5 MG PO; +HYDROCHLOROTH12.5 M1 PO; +LEVETIRACETAM1000 MG PO; +MICROZIDE12.5 MG PO; +MOBIC7.5 MG PO
[2019-01-25 10:43] LABS: ABSOLUTE EOSINOPHILS 0.1 thou/uL (0.0-0.7); ABSOLUTE LYMPHOCYTES 1.6 thou/uL (0.8-5.3); ABSOLUTE MONOCYTES 0.4 thou/uL (0.0-1.2); ABSOLUTE NEUTROPHILS 3.9 thou/uL (1.6-8.1); BASOPHILS 0.2 %; EOSINOPHILS 0.9 %; HEMATOCRIT 35.4 % (37.0-47.0); HEMOGLOBIN 11.9 gm/dL (12.0-15.0); LYMPHOCYTES 26.6 %; MCH 24.8 pg (26.0-34.0); MCHC 33.6 g/dL (28.0-37.0); MCV 73.7 fL (80.0-100.0); MONOCYTES 7.5 %; MPV 8.7 fl. (7.2-11.1); NUCLEATED RBCS 0 /100WBC; PLATELET COUNT* 244 thou/uL (150-400); POLYS 64.8 %; RDW-CV 14.5 % (10.5-14.5); WBC 5.9 thou/uL (4.0-11.0)
[2019-01-25 11:04] LABS: ALKALINE PHOSPHATASE 176 U/L (46-116); ANION GAP 10 mmol/L (7-16); BUN 10 mg/dL (7-18); CALCIUM 9.7 mg/dL (8.5-10.1); CHLORIDE 96 mmol/L (98-107); CO2 30 mmol/L (21-32); CREATININE 0.8 mg/dL (0.6-1.3); GLUCOSE 252 mg/dL (70-99); POTASSIUM 3.3 mmol/L (3.5-5.1); SGOT 52 U/L (15-37); SGPT 40 U/L (30-65); SODIUM 136 mmol/L (136-145); TOTAL BILIRUBIN 0.3 mg/dL (<0.1-1.0); TOTAL PROTEIN 8.7 g/dL (6.4-8.2); TROPONIN-I LEVEL <0.06 ng/mL (<0.06)
[2019-01-25] MEDS ORDERED: ZPAK PO (11:18)
[2019-01-25 12:08] LABS: URINE BILIRUBIN NEGATIVE (Negative); URINE BLOOD TRACE (Negative); URINE CLARITY CLEAR; URINE COLOR YELLOW; URINE GLUCOSE-RANDOM NEGATIVE (Negative); URINE KETONES NEGATIVE (Negative); URINE LEUKOCYTES-REFLEX 1+ (Negative); URINE NITRITE-REFLEX NEGATIVE (Negative); URINE PROTEIN 2+ (Negative); URINE SPECIFIC GRAVITY 1.015 (1.005-1.030); URINE UROBILINOGEN 0.2 E.U./dl (0.2-1.0)
[2019-01-25 12:21] LABS: SQUAMOUS 0-3 Few /LPF (0-3)
[2019-01-25 12:22] LABS: BACTERIA-REFLEX >30 Many /HPF (None Seen); CASTS None Seen /LPF (None Seen); CRYSTALS None Seen /LPF (None Seen); MUCUS 0-3 Light strn/LPF (None Seen); URINE RBC 0-2 Rare /HPF (0-2); URINE WBC-REFLEX 6-15 Few /HPF (0-5)
[2019-01-25] MEDS ORDERED: ZITHROMAX250 MG PO (13:15)
[2019-01-25 13:27] VITALS: BP 151/76
--- NOTE | 2019-01-25 16:09 | EKG ---
[place] [address] ELECTROCARDIOGRAM REPORT Name: JUSTINO CEDEÑO Room: [facility] [place] [id number] Admission: 01/25/19 Attend Phys: Discharge: 01/25/19 Date of : 57 Report #: [id number] THIS REPORT FOR: //name// [facility] ED Test Date: 2019-01-25 Test Time: 10:34:43 Pat Name: JUSTINO CEDEÑO Department: Room: Gender: F Panel Machine Setter: BRANDI : 1955 Requested By: Romana Solomon Order Number: [id number] MD: Eric Chand Measurements Intervals [place] Rate: 93 P: 28 PA: 187 QRS: -7 QRSD: 95 T: 36 QT: 394 QTc: 491 Interpretive Statements Sinus rhythm Consider left atrial enlargement Abnormal R-wave progression, early transition Borderline prolonged QT interval Compared to ECG 12/16/2018 04:20:24 T-wave abnormality no longer present Electronically Signed On 01-25-2019 16:09:34 EDUCATION DEPARTMENT REGISTRAR by Eric Chand [email or web address] <ELECTRONICALLY SIGNED> By: Eric Chand MD, [facility] 01/25/19 1609 1034 1034 Eric Chand MD, [facility] /EPI
== END 2019-01-25 13:27 | disposition home or self-care (01) ==
LOC: M.ERS 10:11
PROVIDERS: Nurse Practitioner Family
DX: I10 Essential (primary) hypertension (principal); J02.0 Streptococcal pharyngitis; B07.0 Plantar wart; M79.7 Fibromyalgia; M06.9 Rheumatoid arthritis, unspecified; J44.9 Chronic obstructive pulmonary disease, unspecified; E78.00 Pure hypercholesterolemia, unspecified; K21.9 Gastro-esophageal reflux disease without esophagitis; F41.9 Anxiety disorder, unspecified; Z90.710 Acquired absence of both cervix and uterus; Z90.49 Acquired absence of other specified parts of digestive tract; Z87.891 Personal history of nicotine dependence; Z88.8 Allergy status to other drugs, medicaments and biological substances; Z88.1 Allergy status to other antibiotic agents; Z88.5 Allergy status to narcotic agent; Z91.041 Radiographic dye allergy status; Z88.0 Allergy status to penicillin; Z86.73 Personal history of transient ischemic attack (TIA), and cerebral infarction without residual deficits

== ENCOUNTER 2019-06-16 22:41 | Emergency (ER) | payer MEDICAID ==
[~2019-06-16] VITALS: Ht 177.8 cm; Wt 69.4 kg
[~2019-06-16 22:41] MED LIST changes: +ZITHROMAX250 MG PO
[2019-06-16 23:05] LABS: ABSOLUTE EOSINOPHILS 0.1 thou/uL (0.0-0.7); ABSOLUTE LYMPHOCYTES 1.4 thou/uL (0.8-5.3); ABSOLUTE MONOCYTES 0.2 thou/uL (0.0-1.2); ABSOLUTE NEUTROPHILS 1.2 thou/uL (1.6-8.1); BASOPHILS 0.4 %; EOSINOPHILS 1.7 %; HEMATOCRIT 35.8 % (37.0-47.0); HEMOGLOBIN 12.4 gm/dL (12.0-15.0); LYMPHOCYTES 49.1 %; MCH 25.7 pg (26.0-34.0); MCHC 34.6 g/dL (28.0-37.0); MCV 74.4 fL (80.0-100.0); MONOCYTES 8.2 %; MPV 9.5 fl. (7.2-11.1); NUCLEATED RBCS 0 /100WBC; PLATELET COUNT* 153 thou/uL (150-400); POLYS 40.6 %; RBC 4.82 mil/uL (4.20-5.00); RDW-CV 15.9 % (10.5-14.5); WBC 2.9 thou/uL (4.0-11.0)
[2019-06-16 23:12] LABS: ANION GAP 13 mmol/L (7-16); BUN 12 mg/dL (7-18); CALCIUM 9.1 mg/dL (8.5-10.1); CHLORIDE 97 mmol/L (98-107); CO2 30 mmol/L (21-32); CREATININE 0.9 mg/dL (0.6-1.3); GLUCOSE 313 mg/dL (70-99); POTASSIUM 3.1 mmol/L (3.5-5.1); SODIUM 140 mmol/L (136-145)
[2019-06-16 23:21] LABS: ALKALINE PHOSPHATASE 182 U/L (46-116); SGOT 25 U/L (15-37); SGPT 39 U/L (30-65); TOTAL BILIRUBIN 0.3 mg/dL (<0.1-1.0); TOTAL PROTEIN 7.8 g/dL (6.4-8.2); TROPONIN-I LEVEL <0.06 ng/mL (<0.06)
[2019-06-16] MEDS ORDERED: LOMOTIL TABLET1 EACH PO (23:33)
[2019-06-16 23:34] LABS: APTT 26.1 Seconds (25.0-31.3)
[2019-06-17 00:11] LABS: URINE BILIRUBIN NEGATIVE (Negative); URINE BLOOD TRACE (Negative); URINE CLARITY CLEAR; URINE COLOR YELLOW; URINE GLUCOSE-RANDOM 3+ (Negative); URINE KETONES NEGATIVE (Negative); URINE LEUKOCYTES TRACE (Negative); URINE NITRITE POSITIVE (Negative); URINE PROTEIN NEGATIVE (Negative); URINE SPECIFIC GRAVITY <= 1.005 (1.005-1.030); URINE UROBILINOGEN 0.2 E.U./dl (0.2-1.0)
[2019-06-17 00:18] LABS: BACTERIA >30 Many /HPF (None Seen); CASTS None Seen /LPF (None Seen); CRYSTALS None Seen /LPF (None Seen); MUCUS 0-3 Light strn/LPF (None Seen); SQUAMOUS 0-3 Few /LPF (0-3); URINE RBC 0-2 Rare /HPF (0-2); URINE WBC 6-15 Few /HPF (0-5)
[2019-06-17] MEDS ORDERED: MACROBID 100 M100 M1 PO (01:57)
[2019-06-17] MEDS ORDERED: NORCO 7.5-3251 EACH PO (01:57)
[2019-06-17] MEDS ORDERED: ZOFRAN ODT4 MG PO (01:57)
[2019-06-17 02:12] VITALS: BP 178/71
--- NOTE | 2019-06-19 16:50 | EKG ---
[place] [address] ELECTROCARDIOGRAM REPORT Name: JUSTINO CEDEÑO Room: [facility]#: [id number] Admission: 06/16/19 Attend Phys: Discharge: 06/17/19 Date of : 57 Report #: [id number] THIS REPORT FOR: //name// [facility] ED Test Date: 2019-06-17 Test Time: 00:21:28 Pat Name: JUSTINO CEDEÑO Department: Room: Gender: F Sleeve Fixer: [place] : 1955 Requested By: Tati Shrestha Order Number: [id number] MD: Michael Nugent Measurements Intervals [place] Rate: 75 P: 34 [place]: 148 QRS: 1 QRSD: 109 T: 53 QT: 430 QTc: 481 Interpretive Statements Sinus rhythm Abnormal R-wave progression, early transition Nonspecific repol abnormality, diffuse leads Compared to ECG 01/25/2019 10:34:43 Early repolarization now present Electronically Signed On 06-19-2019 16:50:38 CDT by Michael Nugent [email or web address] <ELECTRONICALLY SIGNED> By: Michael Nugent MD, [facility] 06/19/19 1650 002 002 Michael Nugent MD, FACC /EPI
== END 2019-06-17 02:13 | disposition home or self-care (01) ==
LOC: M.ERS 22:41
PROVIDERS: Emergency Medicine
DX: N39.0 Urinary tract infection, site not specified (principal); I10 Essential (primary) hypertension; E11.9 Type 2 diabetes mellitus without complications; Z87.891 Personal history of nicotine dependence; Z88.8 Allergy status to other drugs, medicaments and biological substances; Z88.5 Allergy status to narcotic agent

== ENCOUNTER → 2019-08-01 | Outpatient (CLI) | payer MEDICAID ==
[~2019-08-01] MED LIST changes: +LOMOTIL TABLET1 EACH PO; +MACROBID 100 M100 M1 PO; +NORCO 7.5-3251 EACH PO
[2019-08-01 11:41] LABS: CALCIUM 9.5 mg/dL (8.5-10.1); CREATININE 0.8 mg/dL (0.6-1.3); POTASSIUM 4.4 mmol/L (3.5-5.1)
== END ==
LOC: M.LAB 10:59
PROVIDERS: Nurse Practitioner
DX: E87.6 Hypokalemia (principal)

== ENCOUNTER 2019-08-21 10:30 | Inpatient (IN) | payer MEDICAID ==
[2019-08-21] VITALS (12 sets, daily range): BP systolic 123–239; BP diastolic 57–104
[~2019-08-21] VITALS: Ht 172.7 cm; Wt 68.5 kg
[~2019-08-21 10:30] MED LIST changes: +CLONIDINE HCL0.2 M2 PO; -CLONIDINE0.1 PO
[2019-08-21 10:45] LABS: ABSOLUTE EOSINOPHILS 0.1 thou/uL (0.0-0.7); ABSOLUTE LYMPHOCYTES 2.1 thou/uL (0.8-5.3); ABSOLUTE MONOCYTES 0.4 thou/uL (0.0-1.2); ABSOLUTE NEUTROPHILS 2.2 thou/uL (1.6-8.1); BASOPHILS 0.5 %; EOSINOPHILS 2.5 %; HEMATOCRIT 41.3 % (37.0-47.0); HEMOGLOBIN 14.4 gm/dL (12.0-15.0); LYMPHOCYTES 43.2 %; MCHC 34.8 g/dL (28.0-37.0); MCV 77.7 fL (80.0-100.0); MONOCYTES 7.4 %; MPV 8.9 fl. (7.2-11.1); NUCLEATED RBCS 0 /100WBC; PLATELET COUNT* 220 thou/uL (150-400); POLYS 46.4 %; RBC 5.32 mil/uL (4.20-5.00); RDW-CV 14.1 % (10.5-14.5); WBC 4.8 thou/uL (4.0-11.0)
[2019-08-21 10:55] LABS: ANION GAP 13 mmol/L (7-16); BUN 14 mg/dL (7-18); CALCIUM 10.4 mg/dL (8.5-10.1); CHLORIDE 94 mmol/L (98-107); CO2 27 mmol/L (21-32); CREATININE 0.9 mg/dL (0.6-1.3); GLUCOSE 295 mg/dL (70-99); POTASSIUM 3.6 mmol/L (3.5-5.1); SODIUM 134 mmol/L (136-145)
[2019-08-21 10:56] LABS: PROTIME 10.4 Seconds (9.20-11.50)
[2019-08-21 11:04] LABS: ALBUMIN 5.1 g/dL (3.4-5.0); ALKALINE PHOSPHATASE 208 U/L (46-116); LIPASE 126 U/L (73-393); SGOT 55 U/L (15-37); SGPT 43 U/L (30-65); TOTAL BILIRUBIN 0.6 mg/dL (<0.1-1.0); TOTAL PROTEIN 9.5 g/dL (6.4-8.2); TROPONIN-I LEVEL <0.06 ng/mL (<0.06)
[2019-08-21 11:06] LABS: BE 0.2 mmol/L (-2 to +3); PCO2 32.2 mmHg (35.0-45.0); PO2 69.6 mmHg (75.0-100.0); pH 7.474 (7.340-7.450)
--- NOTE | 2019-08-21 12:25 | NUR ---
NUVIA NOTIFIED UPON PT RETURN FROM CT. PT WAS NOT CONNETED TO MONITOR SHE WAS NOT CONNECTED PRIOR TO GOING TO CT
--- NOTE | 2019-08-21 14:34 | EKG ---
[place] [address] ELECTROCARDIOGRAM REPORT Name: JUSTINO CEDEÑO Room: [place] [address] ADM IN ..#: [id number] Admission: 08/21/19 Attend Phys: Jordan Dominguez Discharge: Date of : 57 Report #: [id number] THIS REPORT FOR: //name// [facility] ED Test Date: 2019-08-21 Test Time: 10:28:44 Pat Name: JUSTINO CEDEÑO Department: Room: [facility] Gender: F Photo Lab Technician: DIDI : 1955 Requested By: Blanca Marcum Order Number: [id number] MD: Harrison Dotson Measurements Intervals [place] Rate: 91 P: 37 [place]: 144 QRS: 7 QRSD: 97 T: 55 QT: 392 QTc: 483 Interpretive Statements Sinus rhythm Probable left atrial enlargement Compared to ECG 06/17/2019 00:21:28 T wave changes no longer present Electronically Signed On 08-21-2019 14:34:19 CDT by Harrison Dotson [email or web address] <ELECTRONICALLY SIGNED> By: Harrison Dotson MD, [facility] 08/21/19 1434 1028 1028 Harrison Dotson MD, [facility] /EPI
--- NOTE | 2019-08-21 15:26 | NUR ---
ASSESSMENT COMPLETE. PT ADMITTED FROM ER WITH CHEST PAIN AND HTN. PT WAS IN OUTPATIENT STRESS TEST AND REPORTED CHEST PAIN AND ELEVATED BLOOD PRESSURE. PT GIVEN TYLENOL PER DR CHANG. IV FLUIDS STARTED. CARDIOLOGY CONSULTED, HEART CATH ORDERED, CONSENT COMPLETED AND IN CHART. PT CURRENTLY IN SECURITY TRAINER. ADMISSION COMPLETED. SEE ASSESSMENT AND VITALS FOR OTHER DETAILS. CALL LIGHT WITHIN REACH, WILL CONTINUE PLAN OF CARE
--- NOTE | 2019-08-21 17:00 | CARD ---
[address] [address] CARDIAC CATH REPORT Name: JUSTINO CEDEÑO Room: [address] IN [facility].#: [id number] Admission: 08/21/19 Attend Phys: Jordan Dominguez Discharge: Date of : 57 Report #: [id number] THIS REPORT FOR: //name// APPROVED REPORT Study performed: 08/21/2019 13:58:36 Patient Details Patient Status: In-Patient Room #: The patient is a 64 year-old female Event Personnel Harrison Dotson Technical Clerk, Aundrea Carias, Aniceto Milan Scrub, Arianna Reed RTR Monitor Procedures Performed Art Access - R femoral artery* Left Heart Cath w/or w/o Coronaries C Abdominal Aortography Hemostasis w/ Mynx Indication Chest pain Risk Factors Arterial Hypertension Admission/Lab Medications/Medications given during procedure Aspirin, Thrombin Inhibitors Procedure Narrative The patient was brought electively to the Cardiac Catheterization Laboratory and was prepped and draped in a sterile manner. The right femoral was infiltrated with 1% Lidocaine subcutaneous anesthesia. A 6fr Ultimum Sheath sheath was inserted into the RFA. Coronary angiography was performed using coronary diagnostic catheters. The right coronary system was accessed and visualized with a JR4 5fr catheter. The left coronary system was accessed and visualized with a JL4 5fr catheter. The left ventricle was accessed and visualized with a Pig 6fr catheter. Left ventricular/Aortic Valve gradient assessed via catheter pullback. Left ventriculogram was performed in WHEAT projection. An aortogram of the abdominal aorta was performed. Pre-demployment femoral angiogram was performed . Closure device was deployed with a 6 Fr MYNX 6F. The patient tolerated the procedure well and there were no complications associated with the procedure. A hematoma occurred. Attempt was made to perform procedure through the right radial artery. Puncture needle [place] [address] CARDIAC CATH REPORT Name: DAVIDSONJUSTINO BORDEN Room: [address] IN [facility].#: [id number] Admission: 08/21/19 Attend Phys: Jordan Dominguez Discharge: Date of : 57 Report #: [id number] blood, but the wire could not be advanced through the radial artery. Hemostasis was obtained and it was decided to perform the procedure from the right femoral artery. After placement of a Mynx on the femoral artery, the patient was noted to have a groin hematoma. Manual pressure was applied and a Zeng catheter was placed. Intraoperative Conscious Sedation Sedation start time: 1438 Case end Time: 1526 Fentanyl 50 mcg Versed 3 mg Fluoro Time: 6.9 minutes Dose: DAP 72879 cGycm2 967 mGy Contrast Type and Amount: Omnipaque 220 ml Coronary Angiography The patient's coronary anatomy is right dominant. Diagnostic Cath Left Main 0% stenosis LAD 50% mid stenosis noted Circumflex 0% stenosis Right Coronary 0% stenosis Left Ventriculography The left ventricle is normal in size with normal contractility. The left ventricular ejection fraction is estimated to be 60-65%. Left ventricular wall motion abnormalities are not present. There is no mitral insufficiency. Because of high blood pressure that was difficult to control, arteriogram of the left renal artery was performed using the JR4 catheter and no stenosis was noted. Arteriogram of the right renal artery was attempted, but the artery could not be cannulated. Therefore, an abdominal aortogram was performed with the pigtail artery which demonstrated no significant renal artery stenosis. Hemodynamics The aortic pressure is 183/61 mmHg with a mean of 89 mmHg. The left ventricular pressure is 189/10 mmHg with a mean of mmHg. The left ventricular end diastolic pressure is 16 mmHg. There was no gradient across the aortic valve upon pullback. Pullback from the left ventricle to the aorta revealed no gradient across the [place] [address] CARDIAC CATH REPORT Name: JUSTINO CEDEÑO Room: [address] IN [facility]#: [id number] Admission: 08/21/19 Attend Phys: Jordan Dominguez Discharge: Date of : 57 Report #: [id number] 1. 50% stenosis noted of the mid LAD 2. LVEF 60-65% 3. no significant renal artery stenosis 4. suspect noncardiac chest pain Recommendations Aggressive Medical Therapy <ELECTRONICALLY SIGNED> By: Harrison Dotson MD, FACC 08/21/191699 99 99Daprudencio Dotson MD, FAC /INF
--- NOTE | 2019-08-21 17:03 | CARDNUC ---
[place] [address] CARDIAC NUCLEAR IMAGING REPORT Name: JUSTINO CEDEÑO Room: [address] IN [facility]#: [id number] Admission: 08/21/19 Attend Phys: Osiel Bob Discharge: Date of : 57 Date of Service: 08/21/19 1703 Report #: [id number] THIS REPORT FOR: //name// APPROVED REPORT Imaging Protocol: Rest Tc-99m/Stress Tc-99m 1 day Study performed: 08/21/2019 09:52:18 Indication: Chest pain Patient Location: Out-Patient Stress Tech: Nina Young Stress Nurse: Claudia Roa RN [place] Tech:JOSSELIN Bergeron Ht: 5 ft 7 in Wt: 147 lbs BSA: 1.77 m2 BMI: 23.02 Rhythm: NSR Medical History Medical History: CAD s/p stent Resting Data Rest SPECT myocardial perfusion imaging was performed in supine position 30 minutes following the intravenous injection of 11.5 mCi of Tc-99m Sestamibi. Time of rest injection: 07:50 The images were gated to evaluate regional wall motion and calculate left ventricular ejection fraction. Administration Route: IV Administration Site: Right AC Pharmacologic Stress Pharmacologic stress test was performed by injecting Regadenoson 0.4 mg IV push over 10-15 seconds immediately followed by the intravenous injection of 31.7 mCi of Tc-99m Sestamibi. Time of stress injection: 10:10 Administration Route: IV Administration Site: Right AC Heart Rate at time of stress injection: 106 bpm. Stress Test Details Stress Test: Pharmacologic stress testing performed using 0.4 mg of regadenoson per 5 mL given IV over 10 seconds. HR Max Heart Rate (APMHR): 157 [place] [address] CARDIAC NUCLEAR IMAGING REPORT Name: DAVIDSONJUSTINO MICHI Room: [address] IN ..#: [id number] Admission: 08/21/19 Attend Phys: Osiel Bob Discharge: Date of : 57 Date of Service: 08/21/19 1703 Report #: [id number] Resting HR: 86 bpm Target HR (85% APMHR): 133 bpm Max HR Achieved: 113 bpm % of APMHR: 71 Recovery HR: 92 bpm BP Resting BP: 225/122 mmHg Max BP: 248/117 mmHg Recovery BP: 232/108 mmHg ECG Resting ECG: Sinus Rhythm Stress ECG: Sinus Bradycardia ST Change: None Arrhythmia: None Recovery ECG: Sinus Rhythm Recovery ST Change: None Recovery Arrhythmia: None Clinical The patient reported chest pain throughout the stress test. Stress ECG Conclusion The baseline 12-lead EKG showed sinus rhythm without significant Mr. T wave abnormality. EKGs obtained during and post Lexiscan stress show sinus rhythm and sinus tachycardia with no significant ST or T wave changes when compared to baseline. There were no stress-induced arrhythmias. Study Quality Study: limited Study Data At rest, the left ventricular ejection fraction was 38%.. Perfusion Resting images showed relatively uniform uptake of the radioisotope throughout the myocardium. Stress images were not obtained as the patient was brought to the emergency room after the stress portion of the test. Wall Motion Global hypokinesis on resting gated images Nuclear Conclusion ECG Findings: [place] [address] CARDIAC NUCLEAR IMAGING REPORT Name: DAVIDSONJUSTINO BORDEN Room: [address] IN [facility].#: [id number] Admission: 08/21/19 Attend Phys: Osiel Bob Discharge: Date of : 57 Date of Service: 08/21/19 1703 Report #: [id number] Clinical Findings: equivocal Nuclear Findings: incomplete Exercise Capacity: not assessed Left Ventricular Function: abnormal The stress test was not completed as stress images were not obtained. Resting images show relatively uniform uptake of the radioisotope. Resting gated images shows global hypokinesis of the left ventricle. <Conclusion> The baseline 12-lead EKG showed sinus rhythm without significant Mr. T wave abnormality. EKGs obtained during and post Lexiscan stress show sinus rhythm and sinus tachycardia with no significant ST or T wave changes when compared to baseline. There were no stress-induced arrhythmias. <ELECTRONICALLY SIGNED> By: Michael Nugent MD, FACC 08/21/191702 02 02 Michael Nugent MD, FACC /INF
--- NOTE | 2019-08-21 17:58 | NUR ---
PT BACK FROM CATH AT 1620. SEE DOCUMENTATION REGARDING SITE AND VITALS SIGNS. PT IS FLAT. SPEAR IN PLACE. PT VSS, NSR ON TELE MONITOR. PT ATE DINNER, DENIES N/V. SPOUSE AT BEDSIDE. FENTANYL GIVEN UPON ADMISSION TO FLOOR AND PT REPORTS PAIN RELIEF. CALL LIGHT WITHIN REACH, WILL CONTINUE PLAN OF CARE
[2019-08-22] VITALS (21 sets, daily range): BP systolic 94–147; BP diastolic 37–73
[2019-08-22 01:48] LABS: HEMATOCRIT 39.2 % (37.0-47.0); HEMOGLOBIN 13.2 gm/dL (12.0-15.0); MCH 26.6 pg (26.0-34.0); MCHC 33.8 g/dL (28.0-37.0); MCV 78.8 fL (80.0-100.0); MPV 9.2 fl. (7.2-11.1); RBC 4.97 mil/uL (4.20-5.00); RDW-CV 14.4 % (10.5-14.5); WBC 7.3 thou/uL (4.0-11.0)
[2019-08-22 01:59] LABS: CALCIUM 9.5 mg/dL (8.5-10.1); CREATININE 1.2 mg/dL (0.6-1.3); POTASSIUM 4.1 mmol/L (3.5-5.1)
[2019-08-22 02:03] LABS: ALBUMIN 4.3 g/dL (3.4-5.0); TOTAL BILIRUBIN 0.3 mg/dL (<0.1-1.0); TOTAL PROTEIN 8.2 g/dL (6.4-8.2)
--- NOTE | 2019-08-22 02:06 | NUR ---
CALLED TO RESEARCH EDITOR @ 0127 FOR SEVERE PAIN AND HEMATOMA TO R GROIN POST CATH ON 08/21; IMMEDIATLY APPLIED PRESSURE FOR 20 MINUTES, VITALS REMAINED STABLE SEE RESEARCH EDITOR SHEET FOR INFO; PEDAL PULSE CHECKED; PT PLACED ON 6 HOUR BEDREST WITH LIMB RESTRICTION; REPORTED TO WILL RN.
--- NOTE | 2019-08-22 03:34 | NUR ---
APPROX 0120 PT COMPLAINED OF PAIN IN THE RIGHT GROIN, PT STATED THAT SHE HEARD A "POP". RAPID WAS CALLED, SEE RAPID RESPONCE FLOW SHEET. PROVIDER NOTIFED ORDERS RECIEVED. PT TRANSFER TO ICU. FAMILY WAS ATTEPTED TO BE CONTACTED UNABLE TO LEAVE VOICE MAIL DUE TO NOT BEING SET UP BY . 20 MIN OF PRESSURE WAS APPPLIED BEFORE TRANSER TO ICU AND VSS.
[2019-08-22 05:49] LABS: HEMATOCRIT 33.1 % (37.0-47.0); HEMOGLOBIN 11.5 gm/dL (12.0-15.0)
--- NOTE | 2019-08-22 07:11 | NUR ---
Pt transferred to ICU at 0220 following bleed/hematoma to R groin; SP cardiac cath 08/21. VSS. No signs of further bleeding to R groin. Hematoma and bruising demarkated in ink. Pt reports pain to groin, especially when touched; rates 6/10. Pt slept for most of remainder of shift. Pt's arrived to unit to visit; states pt has had cardiac cath in the past with bleeding afterwards. Will continue to monitor.
--- NOTE | 2019-08-22 11:25 | NUR ---
PT.IS ALERT AND ORIENTED. SHE SAID SHE LIVES WITH HER IN A HOUSE. HER SON AND HIS FAMILY LIVE NEXT DOOR. SHE HAS A CANE AND WALKER AT HOME. AND PT.HELP EACHOTHER AT HOME AND SHARE CHORES. DISCUSSED DPOA/ADVANCE DIR. WITH PT. GAVE HER DOCUMENT TO FILL OUT. SHE SAID HER HUSBNAD KNOWS WHAT SHE WANTS. TOLD HER TO NOT SIGN UNTIL NOTARY PRESENT.
--- NOTE | 2019-08-22 16:54 | NUR ---
ASSUMED CARE OF PT AROUND 0730 THIS AM. REFER TO ASSESSMENT. PT'S HEMATOMA TO RT GROIN HAS REMAINED UNCHANGED THIS SHIFT. PT GIVEN PRN PAIN MEDICATION X1 FOR PAIN. TOLERATING DIET THIS SHIFT. TOLERATING RA THIS SHIFT. TELE SR. NO OTHER CONCERNS AT THIS TIME. CLWR. WCTM.
[2019-08-23] VITALS (7 sets, daily range): BP systolic 115–160; BP diastolic 40–64
[2019-08-23 02:35] LABS: HEMATOCRIT 29.1 % (37.0-47.0); HEMOGLOBIN 10.1 gm/dL (12.0-15.0); MCH 27.3 pg (26.0-34.0); MCHC 34.7 g/dL (28.0-37.0); MCV 78.6 fL (80.0-100.0); RBC 3.7 mil/uL (4.20-5.00); RDW-CV 14.2 % (10.5-14.5); WBC 5.4 thou/uL (4.0-11.0)
[2019-08-23 02:45] LABS: ALBUMIN 3.6 g/dL (3.4-5.0); POTASSIUM 3.7 mmol/L (3.5-5.1); TOTAL BILIRUBIN 0.3 mg/dL (<0.1-1.0); TOTAL PROTEIN 6.7 g/dL (6.4-8.2)
--- NOTE | 2019-08-23 05:43 | NUR ---
RECEIVED REPORT AND ASSUMED CARE AT 1900. VSS. ICU MONITORING IN PLACE. PT REPORTS PAIN. PRN MEDICATION ADMIN PER ORDERS. ASSESSMENT COMPLETED CHARTED. PT UP WITH ASSIST TO BSC. ON RA. HEMATOMA UNCHANGED THROUGH SHIFT. BED LOCKED IN LOWEST POSITION, CALL LIGHT WITHIN REACH. ROUNDING COMPLETED AND ALL NEEDS MET.
[2019-08-23] MEDS ORDERED: CLONIDINE HCL0.2 M2 PO (09:39)
[2019-08-23] MEDS ORDERED: DILTIAZEM 24HR180 M1 PO (09:40)
[2019-08-23] MEDS ORDERED: OXYCODONE HCL 55 MG PO (09:42)
--- NOTE | 2019-08-23 10:50 | NUR ---
DPOA FOR HEALTH CARE NOTARIZED AND WITNESSED. COPY TO CHART AND GAVE PT.ORIGINAL AND COPIES. SHE WILL BE DISCHARGED TODAY. NO DISCHARGE NEEDS.
--- NOTE | 2019-08-23 11:09 | NUR ---
PATIENT DISCHARGED HOME PER PRIVATE CAR INSTRUCTIONS GIVEN.
--- NOTE | 2019-08-23 14:08 | CON ---
[address] [address] CONSULTATION Name: JUSTINO CEDEÑO Room: [address] IN M.R.#: [id number] Admission: 08/21/19 Attend Phys: Jordan Dominguez Discharge: 08/23/19 Date of : 57 Report #: [id number] THIS REPORT FOR: //name// CC: Hilda Bob DATE OF SERVICE: 08/21/2019 HISTORY OF PRESENT ILLNESS: The patient is a 64-year-old white female, who I was asked to see in the hospital after she complained of chest pain. The patient has an extensive and complicated past medical history. She apparently had a heart catheterization years ago in [place] from the femoral artery and was found to have no significant coronary artery disease. She actually had a repeat heart catheterization by Dr. Crystal here at [place] in 2013 that showed minimal plaque formation, but no high-grade stenosis. She is not very active at this time. She complains of intermittent chest pain. It is not related to exertion or meals. She has taken nitroglycerin that seemed to help. She has had no bleeding, trauma to her chest. She recently saw my nurse practitioner, who recommended a nuclear stress test. Earlier today, she underwent a nuclear stress test here at [place], at which time she began to have chest pain. She was sent to the Emergency Room and admitted. She denies exertional dyspnea, palpitations or recent syncope. PAST MEDICAL HISTORY: Significant for previous hysterectomy and hernia repair. She apparently has a history of atrial fibrillation in the past, actually had a loop recorder placed in the past that had to be removed. She has sleep apnea, but is not using CPAP at this time. She apparently has had a previous stroke involving her speech and was felt to have seizures, was on Keppra for a while, which was discontinued by her neurologist. She does have a history of falls. She does have a history of hypertension, hyperlipidemia, and diabetes. MEDICATIONS: Consists of Eliquis, Lipitor, clonidine, Cymbalta, Nexium, Neurontin, Lopid, insulin, Cardizem, and Imdur. ALLERGIES: SHE HAS INTOLERANCE TO PENICILLIN AND LISINOPRIL. FAMILY HISTORY: Her mother had a heart attack. SOCIAL HISTORY: She is . She and her live in [place]. She quit smoking years ago. No alcohol abuse. REVIEW OF SYSTEMS: She has had no history of asthma, liver disease. She has had kidney stone. No cancer[place] [address] CONSULTATION Name: JUSTINO CEDEÑO Room: [address] IN [facility].#: [id number] Admission: 08/21/19 Attend Phys: Jordan Dominguez Discharge: 08/23/19 Date of : 57 Report #: [id number] PHYSICAL EXAMINATION: GENERAL: Revealed a middle-aged female, lying in bed. She appeared in no acute distress. VITAL SIGNS: Blood pressure is 160/90, pulse is 90. HEENT: She was anicteric. Conjunctivae pink. Mucous membranes moist. NECK: Veins are nondistended. CHEST: Clear to auscultation. CARDIOVASCULAR: Regular rate and rhythm. ABDOMEN: Soft. EXTREMITIES: Had no edema. SKIN: Warm and dry. NEUROLOGIC: Nonfocal. LYMPH: No adenopathy. MUSCULOSKELETAL: No joint effusion. RADIOLOGICAL DATA: Her ECG shows a sinus rhythm, nonspecific ST-segment changes. She had an echocardiogram in November of this year that showed a normal ejection fraction, left ventricular hypertrophy, no significant valvular problems. She had a portable chest x-ray today that showed normal heart size, clear lung osborne. CT scan of the chest using a PE protocol, changes in the spine, tortuous aorta. Previous CT scan of the head without contrast in May showed no acute abnormality. LABORATORY WORK: Sodium 134, creatinine 0.9, glucose 295. Liver function studies were normal. Troponin 0.06. In November, cholesterol was 147, triglyceride 248, HDL 36, LDL 62. TSH in November 0.5. White blood cell count 4.8, hemoglobin 14.4. IMPRESSION AND RECOMMENDATIONS: 1. Chest pain. Relieved with nitroglycerin. Risk factors for coronary artery disease. Recommend cardiac catheterization. 2. Diabetes. The patient is on insulin. 3. Previous tobacco abuse. 4. Sleep apnea. The patient is not using CPAP at this time. 5. Hypertension. The patient is on clonidine and a calcium deacon. 6. History of atrial fibrillation. The patient is on Eliquis. 7. Hyperlipidemia. The patient is on a statin drug. 8. History of seizure disorder. The patient is no longer on Keppra. <ELECTRONICALLY SIGNED> By: Harrison Dotson MD, FACC 08/23/19 1408 1336 2145Davijordan Dotson MD, FACC /nt
== END 2019-08-23 11:00 | disposition home or self-care (01) | DRG 287 ==
LOC: M.TBA-ER 11:47 → M.2W 12:37 → M.ICU 08-22 02:20
PROVIDERS: Internal Medicine Cardiovascular Disease; Personal Emergency Response Attendant; ADMIT Internal Medicine
DX: I25.110 Atherosclerotic heart disease of native coronary artery with unstable angina pectoris (principal); I16.1 Hypertensive emergency; J44.9 Chronic obstructive pulmonary disease, unspecified; I10 Essential (primary) hypertension; I48.91 Unspecified atrial fibrillation; E78.5 Hyperlipidemia, unspecified; G40.909 Epilepsy, unspecified, not intractable, without status epilepticus; E11.9 Type 2 diabetes mellitus without complications; M79.7 Fibromyalgia; K58.9 Irritable bowel syndrome, unspecified; G47.33 Obstructive sleep apnea (adult) (pediatric); M94.0 Chondrocostal junction syndrome [Tietze]; I25.2 Old myocardial infarction; Z86.73 Personal history of transient ischemic attack (TIA), and cerebral infarction without residual deficits; Z90.710 Acquired absence of both cervix and uterus; Z87.891 Personal history of nicotine dependence; Z79.01 Long term (current) use of anticoagulants; Z79.899 Other long term (current) drug therapy; Z88.0 Allergy status to penicillin; Z88.8 Allergy status to other drugs, medicaments and biological substances; Z91.041 Radiographic dye allergy status; Z82.49 Family history of ischemic heart disease and other diseases of the circulatory system

== ENCOUNTER 2019-09-01 15:53 | Emergency (ER) | payer MEDICAID ==
[~2019-09-01] VITALS: Ht 172.7 cm; Wt 68.0 kg
[~2019-09-01 15:53] MED LIST changes: +DILTIAZEM 24HR180 M1 PO; +OXYCODONE HCL 55 MG PO
[2019-09-01 17:08] VITALS: BP 140/72
== END 2019-09-01 17:08 | disposition home or self-care (01) ==
LOC: M.ERS 15:53
DX: S30.1XXA Contusion of abdominal wall, initial encounter (principal); G89.18 Other acute postprocedural pain; R10.31 Right lower quadrant pain; I10 Essential (primary) hypertension; E11.9 Type 2 diabetes mellitus without complications; J44.9 Chronic obstructive pulmonary disease, unspecified; Z95.5 Presence of coronary angioplasty implant and graft; Z86.73 Personal history of transient ischemic attack (TIA), and cerebral infarction without residual deficits; Z87.891 Personal history of nicotine dependence; Z91.041 Radiographic dye allergy status; Z88.0 Allergy status to penicillin; Z88.5 Allergy status to narcotic agent; Z88.8 Allergy status to other drugs, medicaments and biological substances; X58.XXXA Exposure to other specified factors, initial encounter; Y93.89 Activity, other specified; Y92.89 Other specified places as the place of occurrence of the external cause; Y99.8 Other external cause status

== ENCOUNTER → 2019-09-08 | Outpatient (CLI) | payer MEDICAID | LOC: M.ULTRA 11:18 | DX: S30.1XXA Contusion of abdominal wall, initial encounter (principal); Z88.8 Allergy status to other drugs, medicaments and biological substances; Z88.0 Allergy status to penicillin; X58.XXXA Exposure to other specified factors, initial encounter; Y93.89 Activity, other specified; Y92.89 Other specified places as the place of occurrence of the external cause; Y99.8 Other external cause status ==

== ENCOUNTER 2020-01-05 13:30 | Emergency (ER) | payer MEDICAID ==
[~2020-01-05] VITALS: Ht 172.7 cm; Wt 68.0 kg
[2020-01-05] MEDS ORDERED: LANTUS SUBQ (13:49)
[2020-01-05] MEDS ORDERED: NOVOLOG100 UNIT/M SUBQ (13:49)
[2020-01-05] MEDS ORDERED: METFORMIN HCL500 MG PO (13:49)
[2020-01-05 14:26] LABS: ABSOLUTE EOSINOPHILS 0.1 thou/uL (0.0-0.7); ABSOLUTE LYMPHOCYTES 1.3 thou/uL (0.8-5.3); ABSOLUTE MONOCYTES 0.3 thou/uL (0.0-1.2); ABSOLUTE NEUTROPHILS 2.3 thou/uL (1.6-8.1); BASOPHILS 0.5 %; EOSINOPHILS 2.6 %; HEMOGLOBIN 12.2 gm/dL (12.0-15.0); LYMPHOCYTES 32.4 %; MCH 26.4 pg (26.0-34.0); MCHC 33.9 g/dL (28.0-37.0); MCV 77.9 fL (80.0-100.0); MONOCYTES 7.5 %; NUCLEATED RBCS 0 /100WBC; PLATELET COUNT* 193 thou/uL (150-400); RBC 4.63 mil/uL (4.20-5.00)
[2020-01-05 14:30] LABS: CALCIUM 8.9 mg/dL (8.5-10.1); CREATININE 0.7 mg/dL (0.6-1.3); POTASSIUM 3.6 mmol/L (3.5-5.1)
[2020-01-05 14:35] LABS: TOTAL BILIRUBIN 0.3 mg/dL (<0.1-1.0); TOTAL PROTEIN 7.9 g/dL (6.4-8.2)
[2020-01-05 15:29] LABS: URINE BILIRUBIN NEGATIVE (Negative); URINE BLOOD NEGATIVE (Negative); URINE CLARITY CLEAR; URINE COLOR YELLOW; URINE GLUCOSE-RANDOM NEGATIVE (Negative); URINE KETONES NEGATIVE (Negative); URINE LEUKOCYTES-REFLEX NEGATIVE (Negative); URINE NITRITE-REFLEX NEGATIVE (Negative); URINE PROTEIN NEGATIVE (Negative); URINE UROBILINOGEN 0.2 E.U./dl (0.2-1.0)
[2020-01-05] MEDS ORDERED: NEXIUM40 MG PO (15:56)
[2020-01-05 16:21] VITALS: BP 137/69
--- NOTE | 2020-01-07 15:02 | EKG ---
[place] [address] ELECTROCARDIOGRAM REPORT Name: JUSTINO CEDEÑO Room: [facility]#: [id number] Admission: 01/05/20 Attend Phys: Discharge: 01/05/20 Date of : 57 Date of Service: 01/05/20 1343 Report #: [id number] THIS REPORT FOR: //name// [facility] ED Test Date: 2020-01-05 Test Time: 13:43:33 Pat Name: JUSTINO CEDEÑO Department: Room: Gender: Karate Teacher: MS : 1955 Requested By: Blanca Marcum Order Number: [id number] MD: Luis A Spencer Measurements Intervals [place] Rate: 85 P: 45 NV: 147 QRS: -6 QRSD: 98 T: 56 QT: 406 QTc: 483 Interpretive Statements Sinus rhythm Abnormal R-wave progression, early transition Borderline prolonged QT interval Baseline wander in lead(s) V4 Compared to ECG 08/21/2019 10:28:44 No significant changes Electronically Signed On 01-07-2020 15:01:05 BINDING FOLDER MACHINE by Luis A Spencer [email or web address] <ELECTRONICALLY SIGNED> By: Osorio Spencer MD, [facility] 01/07/20 1501 1343 1343 Osorio Spencer MD, [facility] /EPI
== END 2020-01-05 16:26 | disposition home or self-care (01) ==
LOC: M.ERS 13:30
PROVIDERS: Personal Emergency Response Attendant
DX: K21.9 Gastro-esophageal reflux disease without esophagitis (principal); I10 Essential (primary) hypertension; E11.9 Type 2 diabetes mellitus without complications; J44.9 Chronic obstructive pulmonary disease, unspecified; Z87.891 Personal history of nicotine dependence; Z88.0 Allergy status to penicillin; Z91.041 Radiographic dye allergy status; Z88.8 Allergy status to other drugs, medicaments and biological substances; Z86.73 Personal history of transient ischemic attack (TIA), and cerebral infarction without residual deficits; Z79.4 Long term (current) use of insulin

== ENCOUNTER 2020-03-28 08:51 | Emergency (ER) | payer MEDICAID ==
[~2020-03-28] VITALS: Ht 172.7 cm; Wt 68.0 kg
[~2020-03-28 08:51] MED LIST changes: +LANTUS SUBQ; +NOVOLOG100 UNIT/M SUBQ
[2020-03-28] MEDS ORDERED: CLONIDINE HCL0.2 M2 PO (09:24)
[2020-03-28] MEDS ORDERED: ROBAXIN 750 MG750 MG PO (09:25)
[2020-03-28] MEDS ORDERED: HYDROCHLOROTHIA25 M2 PO (09:25)
[2020-03-28] MEDS ORDERED: NITROSTAT0.4 M1 (09:26)
[2020-03-28] MEDS ORDERED: NYSTATIN100000 UNI SW&SWALLOW (09:27)
[2020-03-28] MEDS ORDERED: PANTOPRAZOLE SO40 M1 PO (09:27)
[2020-03-28] MEDS ORDERED: PHENERGAN 25 MG25 MG PO (09:28)
[2020-03-28] MEDS ORDERED: VENTOLIN HFA 1818 GM INH (09:29)
[2020-03-28 10:04] LABS: ABSOLUTE EOSINOPHILS 0.1 thou/uL (0.0-0.7); ABSOLUTE LYMPHOCYTES 1.5 thou/uL (0.8-5.3); ABSOLUTE MONOCYTES 0.3 thou/uL (0.0-1.2); BASOPHILS 0.6 %; EOSINOPHILS 1.2 %; HEMATOCRIT 38.2 % (37.0-47.0); HEMOGLOBIN 13.2 gm/dL (12.0-15.0); LYMPHOCYTES 30.7 %; MCH 26.3 pg (26.0-34.0); MCHC 34.5 g/dL (28.0-37.0); MCV 76.4 fL (80.0-100.0); MONOCYTES 5.4 %; MPV 8.3 fl. (7.2-11.1); NUCLEATED RBCS 0 /100WBC; PLATELET COUNT* 210 thou/uL (150-400); POLYS 62.1 %; RDW-CV 14.3 % (10.5-14.5); WBC 4.8 thou/uL (4.0-11.0)
[2020-03-28 10:17] LABS: CALCIUM 8.9 mg/dL (8.5-10.1); CREATININE 0.8 mg/dL (0.6-1.3); POTASSIUM 3.8 mmol/L (3.5-5.1)
[2020-03-28 10:21] LABS: ALBUMIN 4.4 g/dL (3.4-5.0); TOTAL BILIRUBIN 0.3 mg/dL (<0.1-1.0); TOTAL PROTEIN 7.9 g/dL (6.4-8.2)
[2020-03-28 11:06] LABS: URINE BILIRUBIN NEGATIVE (Negative); URINE BLOOD NEGATIVE (Negative); URINE CLARITY CLEAR; URINE COLOR YELLOW; URINE GLUCOSE-RANDOM 1+ (Negative); URINE KETONES NEGATIVE (Negative); URINE LEUKOCYTES-REFLEX NEGATIVE (Negative); URINE NITRITE-REFLEX NEGATIVE (Negative); URINE PROTEIN 3+ (Negative); URINE SPECIFIC GRAVITY 1.025 (1.005-1.030); URINE UROBILINOGEN 0.2 E.U./dl (0.2-1.0)
[2020-03-28 11:14] LABS: SQUAMOUS 4-10 Moderate /LPF (0-3)
[2020-03-28 11:15] LABS: URINE RBC 0-2 Rare /HPF (0-2); URINE WBC-REFLEX None Seen /HPF (0-5)
[2020-03-28 11:16] LABS: AMORPHOUS URATES Few /LPF (None Seen); BACTERIA-REFLEX None Seen /HPF (None Seen); CASTS None Seen /LPF (None Seen); MUCUS None Seen strn/LPF (None Seen)
[2020-03-28] MEDS ORDERED: NORCO 5-325 TA1 EAC1 PO (11:24)
[2020-03-28 11:37] VITALS: BP 169/97
--- NOTE | 2020-03-28 14:34 | EKG ---
[place] [address] ELECTROCARDIOGRAM REPORT Name: JUSTINO CEDEÑO Room: [facility]#: [id number] Admission: 03/28/20 Attend Phys: Discharge: 03/28/20 Date of : 57 Date of Service: 03/28/20 0953 Report #: [id number] THIS REPORT FOR: //name// [facility] ED Test Date: 2020-03-28 Test Time: 09:53:04 Pat Name: JUSTINO CEDEÑO Department: Room: Gender: F Nitroglycerin Neutralizer: DIAZ : 1955 Requested By: Major Santizo Order Number: [id number] MD: Harrison Dotson Measurements Intervals [place] Rate: 105 P: 72 [place]: 145 QRS: 3 QRSD: 89 T: 50 QT: 371 QTc: 491 Interpretive Statements Sinus tachycardia Abnormal R-wave progression, early transition Borderline prolonged QT interval Baseline wander in lead(s) V4,V5 Compared to ECG 01/05/2020 13:43:33 Sinus rhythm no longer present Electronically Signed On 03-28-2020 14:33:06 CDT by Harrison Dotson [email or web address] <ELECTRONICALLY SIGNED> By: Harrison Dotson MD, [facility] 03/28/20 1433 0953 0953 Harrison Dotson MD, [facility] /EPI
== END 2020-03-28 11:40 | disposition home or self-care (01) ==
LOC: M.ERS 08:51
PROVIDERS: Emergency Medicine Emergency Medical Services
DX: N81.4 Uterovaginal prolapse, unspecified (principal); I10 Essential (primary) hypertension; E11.9 Type 2 diabetes mellitus without complications; J44.9 Chronic obstructive pulmonary disease, unspecified; Z86.73 Personal history of transient ischemic attack (TIA), and cerebral infarction without residual deficits; Z95.5 Presence of coronary angioplasty implant and graft; Z87.891 Personal history of nicotine dependence; Z91.041 Radiographic dye allergy status; Z88.0 Allergy status to penicillin; Z88.6 Allergy status to analgesic agent; Z88.8 Allergy status to other drugs, medicaments and biological substances

== ENCOUNTER 2020-08-31 11:47 | Inpatient (IN) | payer MEDICAID ==
[~2020-08-31] VITALS: Ht 172.7 cm; Wt 70.8 kg
--- NOTE | ~2020-08-31 | CON ---
[address] [address] CONSULTATION Name: JUSTINO CEDEÑO Room: [address] M.R.#: [id number] Admission: 08/31/20 Attend Phys: Tracie Peacock MD Discharge: Date of : 57 Report #: [id number] THIS REPORT FOR: //name// cc: Hilda Mejia MD, Jayne Lora MD ~ THIS REPORT FOR: //name// CC: Hilda Peacock DATE OF SERVICE: 08/31/2020 CARDIOLOGY CONSULTATION HISTORY OF PRESENT ILLNESS: The patient is a 65-year-old female with known coronary artery disease, status post prior PCI. Most recent catheterization was approximately 1 year ago with 50% mid LAD narrowing, no hemodynamically significant stenoses noted. This morning, she felt ill at ease with nausea and some chest discomfort. Paramedics were called. The auto rental supervisor suggested an EKG revealed evidence for acute injury and she was transferred emergently to [facility] in that context. Review of the EKG in the field and in the Emergency Room revealed no evidence for ST segment elevation myocardial infarction. She complained of some mild chest discomfort and generally aching all over with nausea. She received symptomatic therapy for same. PAST MEDICAL HISTORY: Remarkable for coronary artery disease and hyperlipidemia. SOCIAL HISTORY: A question antecedent cigarette smoking history. PHYSICAL EXAMINATION: GENERAL: Reveals a mildly distressed middle-aged female. VITAL SIGNS: Blood pressure 140/70, pulse rate 78, respirations 18 per minute. NECK: Jugular venous pressure is normal. CHEST: Clear. CARDIAC: Reveals normal first and second heart sounds without rubs, murmurs, clicks or gallops. ABDOMEN: Soft. EXTREMITIES: Without edema with intact femoral, pedal and radial pulses. LABORATORY DATA: EKGs reviewed and revealed sinus rhythm with minor nonspecific ST-T alterations with no acute ischemic changes noted[place] [address] CONSULTATION Name: JUSTINO CEDEÑO Room: [address] M.R.#: [id number] Admission: 08/31/20 Attend Phys: Tracie Peacock MD Discharge: Date of : 57 Report #: [id number] artifact. Remainder of lab is pending. IMPRESSION: 1. Chest pain of uncertain etiology. 2. No evidence for ST segment elevation myocardial infarction. 3. Status post prior percutaneous coronary intervention. 4. Hyperlipidemia. RECOMMENDATIONS: At this point, I would take a conservative approach with sequential enzymes, antiplatelet therapy and anticoagulation. We will follow with you. Review data with respect to subsequent modifications in therapy that may be required. Critical care time is 40 minutes from 1230 to 1310 on 08/31/2020. By: 1311 1842John Javi Chand MD, FACC /nt
[~2020-08-31 11:47] MED LIST changes: +HYDROCHLOROTHIA25 M2 PO; +NITROSTAT0.4 M1; +NORCO 5-325 TA1 EAC1 PO; +NYSTATIN100000 UNI SW&SWALLOW; +PANTOPRAZOLE SO40 M1 PO; +PHENERGAN 25 MG25 MG PO; +ROBAXIN 750 MG750 MG PO; +VENTOLIN HFA 1818 GM INH
[2020-08-31 12:04] VITALS: BP 204/96
[2020-08-31 12:27] LABS: ABSOLUTE EOSINOPHILS 0.1 thou/uL (0.0-0.7); ABSOLUTE LYMPHOCYTES 1.5 thou/uL (0.8-5.3); ABSOLUTE MONOCYTES 0.3 thou/uL (0.0-1.2); BASOPHILS 0.7 %; EOSINOPHILS 3.4 %; HEMATOCRIT 32.8 % (37.0-47.0); HEMOGLOBIN 10.7 gm/dL (12.0-15.0); LYMPHOCYTES 37.9 %; MCH 23.9 pg (26.0-34.0); MCHC 32.5 g/dL (28.0-37.0); MCV 73.4 fL (80.0-100.0); MONOCYTES 7.6 %; MPV 8.7 fl. (7.2-11.1); NUCLEATED RBCS 0 /100WBC; PLATELET COUNT* 199 thou/uL (150-400); POLYS 50.4 %; RBC 4.48 mil/uL (4.20-5.00); RDW-CV 16.3 % (10.5-14.5); WBC 3.9 thou/uL (4.0-11.0)
[2020-08-31 12:37] LABS: ANION GAP 12 mmol/L (7-16); BUN 12 mg/dL (7-18); CALCIUM 8.8 mg/dL (8.5-10.1); CHLORIDE 101 mmol/L (98-107); CO2 25 mmol/L (21-32); CREATININE 0.8 mg/dL (0.6-1.3); GLUCOSE 151 mg/dL (70-99); POTASSIUM 3.3 mmol/L (3.5-5.1); SODIUM 138 mmol/L (136-145)
[2020-08-31 12:38] LABS: APTT 25.4 Seconds (25.0-31.3); PROTIME 10.7 Seconds (9.20-11.50)
[2020-08-31 12:41] LABS: ALBUMIN 4.1 g/dL (3.4-5.0); ALKALINE PHOSPHATASE 143 U/L (46-116); CHOLESTEROL 142 mg/dL (<200); HDL CHOLESTEROL 33 mg/dL (>40); LDL CHOLESTEROL 63 mg/dL (<100); MAGNESIUM 1.1 mg/dL (1.8-2.4); SERUM ASSESSMENT Clear; SGOT 23 U/L (15-37); SGPT 17 U/L (30-65); TC:HDL 4.3 Ratio (Not establshd); TOTAL BILIRUBIN 0.4 mg/dL (<0.1-1.0); TOTAL PROTEIN 8.1 g/dL (6.4-8.2); TRIGLYCERIDE 233 mg/dL (<150); VLDL 47 mg/dL (<40)
[2020-08-31 17:45] VITALS: BP 179/82
[2020-08-31 19:45] VITALS: BP 168/71
[2020-08-31] MEDS ORDERED: ISOSORBIDE MONO30 M1 PO (20:54)
[2020-09-01] VITALS: BP 138/60
[2020-09-01 04:00] VITALS: BP 128/73
[2020-09-01 04:15] LABS: HEMATOCRIT 34.3 % (37.0-47.0); HEMOGLOBIN 11.3 gm/dL (12.0-15.0); MCH 24.1 pg (26.0-34.0); MPV 8.8 fl. (7.2-11.1); RBC 4.7 mil/uL (4.20-5.00); RDW-CV 16.7 % (10.5-14.5); WBC 3.3 thou/uL (4.0-11.0)
[2020-09-01 04:23] LABS: CALCIUM 9.6 mg/dL (8.5-10.1); CREATININE 0.7 mg/dL (0.6-1.3)
[2020-09-01 04:28] LABS: POTASSIUM 4.3 mmol/L (3.5-5.1)
[2020-09-01 04:30] LABS: ALBUMIN 4.1 g/dL (3.4-5.0); MAGNESIUM 1.8 mg/dL (1.8-2.4); TOTAL BILIRUBIN 0.4 mg/dL (<0.1-1.0); TOTAL PROTEIN 7.8 g/dL (6.4-8.2)
[2020-09-01 08:00] VITALS: BP 169/86
--- NOTE | 2020-09-01 10:31 | EKG ---
[place] [address] ELECTROCARDIOGRAM REPORT Name: JUSTINO CEDEÑO Room: [address]R.#: [id number] Admission: 08/31/20 Attend Phys: Tracie Peacock, Discharge: Date of : 57 Date of Service: 08/31/20 [facility] Report #: [id number] THIS REPORT FOR: //name// [facility] ED Test Date: 2020-08-31 Test Time: 12:00:20 Pat Name: JUSTINO CEDEÑO Department: Room: [facility] Gender: F Intervention Nurse: BASIM : 1955 Requested By: Blanca Marcum Order Number: [id number] MD: Harrison Dotson Measurements Intervals [place] Rate: 95 P: 77 [place]: 186 QRS: 10 QRSD: 100 T: 52 QT: 396 QTc: 498 Interpretive Statements Sinus rhythm Consider left atrial enlargement Abnormal R-wave progression, early transition Borderline prolonged QT interval Compared to ECG 03/28/2020 09:53:04 Sinus tachycardia no longer present Electronically Signed On 09-01-2020 10:31:41 CDT by Harrison Dotson [email or web address] <ELECTRONICALLY SIGNED> By: Harrison Dotson MD, FACC 09/01/20 1031 1200 1200 Harrison Dotson MD, FACC /EPI
[2020-09-01 13:34] VITALS: BP 149/65
[2020-09-01 17:14] VITALS: BP 142/50
[2020-09-01 20:00] VITALS: BP 154/69
[2020-09-02 00:41] VITALS: BP 118/60
[2020-09-02 03:05] LABS: GLYCOHEMOGLOBIN (HGB A1C) 6.8 % (4.8-5.6)
[2020-09-02 04:20] VITALS: BP 112/46
[2020-09-02 07:30] VITALS: BP 160/73
[2020-09-02] MEDS ORDERED: ASPIR 8181 MG PO (08:06)
[2020-09-02 11:41] VITALS: BP 160/73
[2020-09-02 11:46] VITALS: BP 160/73
[2020-09-02 12:19] VITALS: BP 160/73
--- NOTE | 2020-09-02 18:25 | EKG ---
[place] [address] ELECTROCARDIOGRAM REPORT Name: JUSTINO CEDEÑO Room: [address] [place] M.R.#: [id number] Admission: 09/01/20 Attend Phys: Tracie Peacock, Discharge: 09/02/20 Date of : 57 Date of Service: 09/01/20 1401 Report #: [id number] THIS REPORT FOR: //name// [facility] Test Date: 2020-09-01 Test Time: 14:01:27 Pat Name: JUSTINO CEDEÑO Department: Room: [address] Gender: F Gas Scrubber Operator: JOSSELIN : 1955 Requested By: Tracie Peacock Order Number: [id number] Felice MD: Michael Nugent Measurements Intervals [place] Rate: 89 P: 51 [place]: 144 QRS: -2 QRSD: 98 T: 47 QT: 410 QTc: 499 Interpretive Statements Sinus rhythm Probable left atrial enlargement Compared to ECG 08/31/2020 12:00:20 No significant changes Electronically Signed On 09-02-2020 18:25:44 CDT by Michael Nugent [email or web address] <ELECTRONICALLY SIGNED> By: Michael Nugent MD, FACC 09/02/20 1825 1401 1401 Michael Nugent MD, FACC /EPI
== END 2020-09-02 12:15 | disposition home or self-care (01) | DRG 303 ==
LOC: M.ERS 11:47 → M.TBA-ER 14:47 → M.2W 18:17
PROVIDERS: Personal Emergency Response Attendant; ADMIT Internal Medicine; ATTEND Internal Medicine
DX: I25.119 Atherosclerotic heart disease of native coronary artery with unspecified angina pectoris (principal); I16.1 Hypertensive emergency; J44.9 Chronic obstructive pulmonary disease, unspecified; I10 Essential (primary) hypertension; D64.9 Anemia, unspecified; E11.9 Type 2 diabetes mellitus without complications; E78.5 Hyperlipidemia, unspecified; Z20.828 Contact with and (suspected) exposure to other viral communicable diseases; I25.2 Old myocardial infarction; Z86.73 Personal history of transient ischemic attack (TIA), and cerebral infarction without residual deficits; Z95.5 Presence of coronary angioplasty implant and graft; Z79.84 Long term (current) use of oral hypoglycemic drugs; Z79.899 Other long term (current) drug therapy; Z88.1 Allergy status to other antibiotic agents; Z88.5 Allergy status to narcotic agent; Z88.0 Allergy status to penicillin; Z88.8 Allergy status to other drugs, medicaments and biological substances; Z87.891 Personal history of nicotine dependence; Z23 Encounter for immunization; Z91.041 Radiographic dye allergy status

== ENCOUNTER 2021-05-15 06:34 | Observation (INO) | payer MEDICAID ==
[~2021-05-15] VITALS: Ht 172.7 cm; Wt 81.6 kg
--- NOTE | ~2021-05-15 | D ---
[address] [address] DISCHARGE SUMMARY Name: JUSTINO CEDEÑO Room: [address] Swapna MQuintin#: [id number] Admission: 05/15/21 Attend Phys: Michael Nugent MD Discharge: 05/16/21 Date of : 57 Report #: [id number] THIS REPORT FOR: cc: Hilda Mejia MD, Jayne Lora MD Liston, Michael J. MD [facility] ~ DOC #: [id number] cc: MD Michael Castro MD DATE OF DISCHARGE: 05/16/2021 INDICATION: Progressive dyspnea and chest discomfort consistent with unstable angina. DISCHARGE MEDICATIONS: 1. Coronary artery disease. 2. Paroxysmal atrial fibrillation. 3. Essential hypertension. 4. Type 2 diabetes mellitus. 5. Obstructive sleep apnea. 6. History of cerebrovascular accident. 7. Hyperlipidemia. PROCEDURES DURING HOSPITALIZATION: 1. Coronary angiography. 2. Left heart catheterization. 3. Left ventriculography. 4. Percutaneous coronary intervention to the proximal to mid left anterior descending coronary artery with drug-eluting stent placement. HOSPITAL COURSE: The patient was brought to the cardiac catheterization lab on the morning of 05/15/2021 after having symptoms suggestive of progressive angina. She had known coronary artery disease. Coronary angiography revealed high-grade stenoses involving the proximal to mid left anterior descending coronary artery. The patient ultimately had drug-eluting stent placed in this area with excellent result. The patient tolerated the procedure well without complication. She had no other significant occlusive coronary disease noted at the time of intervention. Left ventriculography revealed normal left ventricular systolic function with an EF of 65%. Her left ventricular end-diastolic pressure was not elevated and estimated to be 10 mmHg. The patient tolerated the procedure well and without complication. The patient was observed overnight and discharged the following day in stable condition. DISCHARGE MEDICATIONS: Include Plavix 75 mg daily, isosorbide mononitrate 30 mg daily, atorvastatin 40 mg at bedtime, Lantus insulin 24 units at bedtime, [place] [address] DISCHARGE SUMMARY Name: JUSTINO CEDEÑO Room: [address] M.R.#: [id number] Admission: 05/15/21 Attend Phys: Michael Nugent MD Discharge: 05/16/21 Date of : 57 Report #: [id number] levetiracetam 1500 mg b.i.d., colestipol 1 gram b.i.d., diltiazem CD 180 mg b.i.d., carvedilol 6.25 mg b.i.d., clonidine 0.1 mg b.i.d., gemfibrozil 600 mg b.i.d., regular insulin sliding scale, gabapentin 600 mg t.i.d., Nitrostat sublingual p.r.n., Nexium 40 mg daily. DISPOSITION: The patient is being discharged in stable condition and is to follow up in the Cardiology office in 2 weeks. MD LUIS MANUEL RinconL/DIVYA By: 1550 1747[facility] Hospital[facility]anne Nugent MD, FACC /nt
[~2021-05-15 06:34] MED LIST changes: +CARVEDILOL6.25 M1 PO; +CLONIDINE HCL0.1 MG PO; +ISOSORBIDE MONO30 M1 PO; +LEVETIRACETAM500 M1 PO; +METHOCARBAMOL750 MG PO; +NEURONTIN600 MG PO; +NEXIUM 40 MG CA40 M1 PO; +NOVOLOG MI100 UNIT/2 SUBQ; -ROBAXIN 750 MG750 MG PO; +VIBRAMYCIN 100100 M2 PO
[2021-05-15 07:20] VITALS: BP 163/64
[2021-05-15 08:34] LABS: ALBUMIN 4.1 g/dL (3.4-5.0); ALKALINE PHOSPHATASE 194 U/L (46-116); ANION GAP 12 mmol/L (7-16); BUN 11 mg/dL (7-18); CALCIUM 8.9 mg/dL (8.5-10.1); CHLORIDE 103 mmol/L (98-107); CO2 24 mmol/L (21-32); CREATININE 0.8 mg/dL (0.6-1.3); GLUCOSE 235 mg/dL (70-99); SERUM ASSESSMENT Clear; SGOT 23 U/L (15-37); SGPT 23 U/L (30-65); SODIUM 139 mmol/L (136-145); TOTAL PROTEIN 7.6 g/dL (6.4-8.2)
[2021-05-15 08:35] LABS: CHOLESTEROL 95 mg/dL (<200); HDL CHOLESTEROL 28 mg/dL (>40); LDL CHOLESTEROL 0 mg/dL (<100); TC:HDL 3.4 Ratio (Not establshd); TRIGLYCERIDE 339 mg/dL (<150); VLDL 68 mg/dL (<40)
[2021-05-15 09:34] LABS: HEMATOCRIT 34.6 % (37.0-47.0); HEMOGLOBIN 11.9 gm/dL (12.0-15.0); MCH 25.5 pg (26.0-34.0); MCHC 34.4 g/dL (28.0-37.0); MCV 74.1 fL (80.0-100.0); RBC 4.66 mil/uL (4.20-5.00); RDW-CV 16.7 % (10.5-14.5); WBC 3.1 thou/uL (4.0-11.0)
[2021-05-15 09:35] VITALS: BP 136/55
[2021-05-15 09:35] LABS: MPV 9.4 fl. (7.2-11.1)
[2021-05-15 09:36] LABS: APTT 23.6 Seconds (25.0-31.3); PROTIME 10.3 Seconds (9.20-11.50)
[2021-05-15 09:53] VITALS: BP 112/47
[2021-05-15 10:12] VITALS: BP 112/47
--- NOTE | 2021-05-15 13:49 | CARD ---
[address] [address] CARDIAC CATH REPORT Name: JUSTINO CEDEÑO Room: [address] Swapna M.R.#: [id number] Admission: 05/15/21 Attend Phys: Michael Nugent MD Discharge: Date of : 57 Report #: [id number] THIS REPORT FOR: cc: Hilda Mejia MD, Jayne Lora MD Holkins, John M. MD [facility] ~ APPROVED REPORT Study performed: 05/15/2021 08:24:03 Patient Details Patient Status: Out-Patient Room #: The patient is a 65 year-old female Event Personnel Michael Nugent Patient Support Partner, Eric Chand Community Development Officer, Zora Wallace RN Hide House Supervisor, Courtney Delarosa RTR Monitor, Franck Tracy RTR Scrub Procedures Performed Art Access - R femoral artery, Left Heart Cath w/or w/o Coronaries LHC, ANGELICA Place w/wo Plasty Single LAD , Hemostasis w/ Angioseal Indication Unstable angina Risk Factors Hypercholesterolemia, Hypertension Admission/Lab Medications/Medications given during procedure Hydralazine (Apresoline) IV 10 mg, Angiomax IV 12 ml, Angiomax Drip IV 28.38 ml per hr, Nitroglycerin IC 200 mcg, Zofran (Ondansetron) IV 4 mg, Plavix PO 300 mg, Aspirin PO 324 mg, Hydralazine (Apresoline) IV 10 mg Procedure Narrative The patient was brought electively to the Cardiac Catheterization Laboratory and was prepped and draped in a sterile manner. The right femoral was infiltrated with 2% Lidocaine subcutaneous anesthesia. IV conscious sedation was used throughout procedure with appropriate monitoring and was performed in the presence of a registered nurse who was an independent [place] [address] CARDIAC CATH REPORT Name: JUSTINO CEDEÑO Room: [address] M.R.#: [id number] Admission: 05/15/21 Attend Phys: Michael Nugent MD Discharge: Date of : 57 Report #: [id number] performing the procedure. A 6F Ultimum sheath was inserted into the right femoral artery. Coronary angiography was performed using coronary diagnostic catheters. The right coronary system was accessed and visualized with a 6F JR4 catheter. The left coronary system was accessed and visualized with a 6F JL4 catheter. The left ventricle was accessed and visualized with a 6F Pigtail catheter. Left ventricular/Aortic Valve gradient assessed via catheter pullback. Left ventriculogram was performed in WHEAT projection. Pre-demployment femoral angiogram was performed . Closure device was deployed with a 6 Fr Angioseal STS. The patient tolerated the procedure well and there were no complications associated with the procedure. There was no hematoma. Intraoperative Conscious Sedation Sedation start time: 08:33 Case end Time: 09:17 Fentanyl 75 mcg Versed 4 mg Fluoro Time: 6.1 minutes Dose: DAP 06129 cGycm2 1510 mGy Contrast Type and Amount: Visipaque 140 ml Coronary Angiography The patient's coronary anatomy is right dominant. Diagnostic Cath Left Main 0% narrowing LAD 75% tubular proximalmid vessel stenosis Circumflex 20% proximal narrowing Right Coronary Dominant vessel with 0% narrowing Left Ventriculography The left ventricle is normal in size with normal contractility. The left ventricular ejection fraction is estimated to be 60-65%. Left ventricular wall motion abnormalities are not present. There is no mitral insufficiency. Hemodynamics The aortic pressure is 177/68 mmHg with a mean of 111 mmHg. The left ventricular pressure is 173/6 mmHg with a mean of mmHg. The left ventricular end diastolic pressure is 10 mmHg. There was no gradient across the aortic valve upon pullback. PCI Technique Lesion Anticoagulation was achieved with Angiomax[place] [address] CARDIAC CATH REPORT Name: JUSTINO CEDEÑO Room: [address]#: [id number] Admission: 05/15/21 Attend Phys: Michael Nugent MD Discharge: Date of : 57 Report #: [id number] with Angiomax IV 12 ml. Percutaneous coronary intervention was performed on the proximal left anterior descending artery segment. The lesion stenosis prior to intervention was 75% with REZA 3 flow. A 6F XB LAD 3.5 Guide Catheter was used to engage the lm ostium. A BMW 190cm Interventional Guidewire was used to cross the lesion. BALLOON DILATION A Balloon catheter Trek RX 2.5 X 12 was inserted and inflated up to 14.00atm for 9seconds. Additional Inflation: 17.00atm for 7seconds. Additional Inflation: 19.00atm for 8seconds. STENT DEPLOYMENT A drug-eluting stent Ken RX Stent 3.0X30mm was inserted and inflated up to 14.00atm for 7seconds. Additional Inflation: 14.00atm for 6seconds. Final angiography reveals 10 % stenosis with REZA 3 flow. Conclusion 1. Significant single-vessel coronary artery disease characterized by the following: A 75% tubular proximalmid LAD stenosis 2 moderate systemic systolic hypertension 3 normal left ventricular systolic function, estimate ejection fraction 60-65% 4. Successful PCI with deployment of drug-eluting stent at the site of 75% tubular proximalmid LAD stenosis with 10% residual narrowing and REZA-3 flow to the distal vessel Recommendations Cardiac Risk Reduction Program Medications Administered Aspirin (any) [place] [address] CARDIAC CATH REPORT Name: JUSTINO CEDEÑO Room: [address] Swapna M.RGage#: [id number] Admission: 05/15/21 Attend Phys: Michael Nugent MD Discharge: Date of : 57 Report #: [id number] Diagnostic Cath Approved by: Michael Nugent MD Date/Time: 05/15/2021 13:47:52 <ELECTRONICALLY SIGNED> By: Eric Chand MD, [facility] 05/15/21 1348 47 134Eric Chand MD, [facility] /INF
--- NOTE | 2021-05-15 14:40 | EKG ---
[place] [address] ELECTROCARDIOGRAM REPORT Name: JUSTINO CEDEÑO Room: [address]R.#: [id number] Admission: 05/15/21 Attend Phys: Michael Nugent, Discharge: Date of : 57 Date of Service: 05/15/217[address] Report #: [id number] THIS REPORT FOR: //name// [facility] Test Date: 2021-05-15 Test Time: 07:23:50 Pat Name: JUSTINO CEDEÑO Department: Room: [facility] Gender: F Nuclear Operations Specialist: : 1955 Requested By: Michael Nugent Order Number: [id number] Reading MD: Eric Chand Measurements Intervals [place] Rate: 67 P: 16 [place]: 169 QRS: -8 QRSD: 99 T: 35 QT: 454 QTc: 480 Interpretive Statements Sinus rhythm Abnormal R-wave progression, early transition Left ventricular hypertrophy Borderline prolonged QT interval Baseline wander in lead(s) II,III,aVF Compared to ECG 09/01/2020 14:01:27 Left ventricular hypertrophy now present Electronically Signed On 05-15-2021 14:40:44 CDT by Eric Chand [email or web address] <ELECTRONICALLY SIGNED> By: Eric Chand MD, [facility] 05/15/21 1440 2 2 Eric Chand MD, [facility] /EPI
--- NOTE | 2021-05-15 14:41 | EKG ---
[place] [address] ELECTROCARDIOGRAM REPORT Name: JUSTINO CEDEÑO Room: [address] M.R.#: [id number] Admission: 05/15/21 Attend Phys: Michael Nugent, Discharge: Date of : 57 Date of Service: 05/15/21 1330 Report #: [id number] THIS REPORT FOR: //name// [facility] Test Date: 2021-05-15 Test Time: 13:30:44 Pat Name: JUSTINO CEDEÑO Department: Room: [address] Gender: F Consulting It Architect: : 1955 Requested By: Michael Nugent Order Number: [id number] Reading MD: Eric Chand Measurements Intervals [place] Rate: 77 P: 24 NM: 150 QRS: 2 QRSD: 101 T: 48 QT: 442 QTc: 501 Interpretive Statements Sinus rhythm Abnormal R-wave progression, early transition Prolonged QT interval Compared to ECG 05/15/2021 07:23:50 Left ventricular hypertrophy no longer present Electronically Signed On 05-15-2021 14:41:32 CDT by Eric Chand [email or web address] <ELECTRONICALLY SIGNED> By: Eric Chand MD, [facility] 05/15/21 1441 1330 1330 Eric Chand MD, [facility] /EPI
[2021-05-15 14:45] VITALS: BP 112/47
[2021-05-15 16:08] VITALS: BP 155/50
[2021-05-16] VITALS: BP 175/77
[2021-05-16 04:00] VITALS: BP 148/58
[2021-05-16 08:00] VITALS: BP 179/68
[2021-05-16] MEDS ORDERED: PLAVIX 75 MG TA75 MG PO (09:27)
[2021-05-16 11:13] VITALS: BP 112/47
[2021-05-16 12:17] VITALS: BP 112/47
--- NOTE | 2021-05-16 12:38 | NUR ---
RECEIVED REPORT AROUND 0715. ASSUMED CARE. VS AND ASSESSMENT CHARTED. MEDS GIVEN PER JAN. HOURLY ROUNDING PERFORMED. RIGHT GROIN SITE CLEAN,DRY, AND INTACT. PT UP ADLIB. CARDIOLOGY SIGNED OFF. OK FOR DISCHARGE THIS SHIFT. DISCHARGE ORDERS RECEIVED. DISCHARGE PACKET GIVEN TO PT. COMMUNCIATED UNDERSTADNING. IV TAKEN OUT. HEART MONITOR OFF. PT LEFT VIA AMBULATORY OFF UNIT WITH NURSING STAFF AND ALL BELONGINGS AT 1238.
== END 2021-05-16 12:38 | disposition home or self-care (01) ==
LOC: M.CL 06:34 → M.TBA-CV 09:02 → M.2W 10:30 → M.CL 11:00 → M.2W 05-16 12:38
PROVIDERS: ADMIT Internal Medicine Cardiovascular Disease; ATTEND Internal Medicine Cardiovascular Disease
DX: I25.10 Atherosclerotic heart disease of native coronary artery without angina pectoris (principal); I48.0 Paroxysmal atrial fibrillation; I10 Essential (primary) hypertension; E11.9 Type 2 diabetes mellitus without complications; G47.33 Obstructive sleep apnea (adult) (pediatric); E78.5 Hyperlipidemia, unspecified; Z86.73 Personal history of transient ischemic attack (TIA), and cerebral infarction without residual deficits

== ENCOUNTER → 2021-05-21 | Outpatient (CLI) | payer MEDICAID ==
[~2021-05-21] MED LIST changes: +PLAVIX 75 MG TA75 MG PO
== END ==
LOC: M.RAD 14:44
PROVIDERS: ATTEND Nurse Practitioner
DX: R06.02 Shortness of breath (principal)

== ENCOUNTER 2021-07-09 11:56 | Emergency (ER) | payer MEDICAID ==
[~2021-07-09] VITALS: Ht 172.7 cm; Wt 75.3 kg
[2021-07-09 13:25] LABS: URINE BILIRUBIN NEGATIVE (Negative); URINE BLOOD TRACE (Negative); URINE CLARITY CLEAR; URINE COLOR YELLOW; URINE GLUCOSE-RANDOM NEGATIVE (Negative); URINE KETONES TRACE (Negative); URINE LEUKOCYTES-REFLEX TRACE (Negative); URINE NITRITE-REFLEX NEGATIVE (Negative); URINE PROTEIN TRACE (Negative); URINE SPECIFIC GRAVITY 1.025 (1.005-1.030); URINE UROBILINOGEN 0.2 E.U./dl (0.2-1.0)
[2021-07-09 13:33] LABS: ABSOLUTE EOSINOPHILS 0.1 thou/uL (0.0-0.7); ABSOLUTE LYMPHOCYTES 1.4 thou/uL (0.8-5.3); ABSOLUTE MONOCYTES 0.3 thou/uL (0.0-1.2); ABSOLUTE NEUTROPHILS 2.5 thou/uL (1.6-8.1); BASOPHILS 0.7 %; EOSINOPHILS 2.1 %; HEMATOCRIT 34.5 % (37.0-47.0); HEMOGLOBIN 11.5 gm/dL (12.0-15.0); LYMPHOCYTES 31.8 %; MCHC 33.3 g/dL (28.0-37.0); MONOCYTES 7.1 %; MPV 8.6 fl. (7.2-11.1); NUCLEATED RBCS 0 /100WBC; PLATELET COUNT* 169 thou/uL (150-400); POLYS 58.3 %; RBC 4.42 mil/uL (4.20-5.00); RDW-CV 16.6 % (10.5-14.5); WBC 4.3 thou/uL (4.0-11.0)
[2021-07-09 13:40] LABS: BACTERIA-REFLEX None Seen /HPF (None Seen); HYALINE CASTS >10 Many /LPF (None Seen); MUCUS 4-6 Moderate strn/LPF (None Seen); SQUAMOUS 0-3 Few /LPF (0-3); URINE RBC 0-2 Rare /HPF (0-2); URINE WBC-REFLEX 0-5 Rare /HPF (0-5)
[2021-07-09 13:45] LABS: CALCIUM 8.7 mg/dL (8.5-10.1); CREATININE 1.2 mg/dL (0.6-1.3); POTASSIUM 4.2 mmol/L (3.5-5.1)
[2021-07-09 13:49] LABS: APTT 27.2 Seconds (25.0-31.3); INR 1.1; PROTIME 11.3 Seconds (9.20-11.50)
[2021-07-09 13:50] LABS: ALBUMIN 4.6 g/dL (3.4-5.0); TOTAL BILIRUBIN 0.3 mg/dL (<0.1-1.0); TOTAL PROTEIN 7.6 g/dL (6.4-8.2)
[2021-07-09 13:56] LABS: CRYSTALS None Seen /LPF (None Seen)
[2021-07-09 15:08] VITALS: BP 134/64
== END 2021-07-09 15:09 | disposition home or self-care (01) ==
LOC: M.ERS 11:56
PROVIDERS: Emergency Medicine; Nurse Practitioner Family
DX: S30.1XXA Contusion of abdominal wall, initial encounter (principal); I10 Essential (primary) hypertension; E11.9 Type 2 diabetes mellitus without complications; J44.9 Chronic obstructive pulmonary disease, unspecified; Z79.2 Long term (current) use of antibiotics; Z79.4 Long term (current) use of insulin; Z79.899 Other long term (current) drug therapy; Z87.891 Personal history of nicotine dependence; Z88.0 Allergy status to penicillin; Z88.1 Allergy status to other antibiotic agents; Z88.6 Allergy status to analgesic agent; X58.XXXA Exposure to other specified factors, initial encounter; Y93.89 Activity, other specified; Y92.89 Other specified places as the place of occurrence of the external cause; Y99.8 Other external cause status

== ENCOUNTER 2021-12-05 10:20 | Inpatient (IN) | payer MEDICARE, MEDICAID ==
[~2021-12-05] VITALS: Ht 172.7 cm; Wt 76.2 kg
--- NOTE | ~2021-12-05 | PROC ---
[address] [address] PROCEDURE REPORT Name: JUSTINO CEDEÑO Room: [address] IN M.R.#: [id number] Admission: 12/05/21 Attend Phys: Jordan Dominguez Discharge: 12/10/21 Date of : 57 Report #: [id number] THIS REPORT FOR: cc: Hilda Mejia MD, Jayne Lora MD [facility],Medical Records Staff ~ For GI report, please see the Provation report in Perceptive 7 content. By: 0659Medical Records Staff [facility] /SVETLANA
--- NOTE | ~2021-12-05 | PROC ---
[facility] [address] [place] [address] PROCEDURE REPORT Name: JUSTINO CEDEÑO Room: [facility] IN M.R.#: [id number] Admission: 12/05/21 Attend Phys: Jordan Dominguez Discharge: Date of : 57 Report #: [id number] THIS REPORT FOR: cc: Hilda Mejia MD, Jayne Lora MD [facility],Medical Records Staff ~ For GI report, please see the Provation report in Perceptive 7 content. By: 1019Medical Records Staff MAXIMINO /SVETLANA
--- NOTE | ~2021-12-05 | PROC ---
[facility] [address] [place] [address] PROCEDURE REPORT Name: JUSTINO CEDEÑO Room: [facility] IN M.R.#: [id number] Admission: 12/05/21 Attend Phys: Jordan Dominguez Discharge: Date of : 57 Report #: [id number] THIS REPORT FOR: cc: Hilda Mejia MD, Jayne Lora MD [facility],Medical Records Staff ~ For GI report, please see the Provation report in Perceptive 7 content. By: 1021Medical Records Staff MAXIMINO /SVETLANA
[2021-12-05 11:29] VITALS: BP 110/46
[2021-12-05 14:00] LABS: ABSOLUTE EOSINOPHILS 0.1 thou/uL (0.0-0.7); ABSOLUTE LYMPHOCYTES 1.8 thou/uL (0.8-5.3); ABSOLUTE MONOCYTES 0.4 thou/uL (0.0-1.2); ABSOLUTE NEUTROPHILS 3.4 thou/uL (1.6-8.1); BASOPHILS 0.5 %; HEMATOCRIT 39.9 % (37.0-47.0); HEMOGLOBIN 13.5 gm/dL (12.0-15.0); LYMPHOCYTES 30.7 %; MCH 26.7 pg (26.0-34.0); MCHC 33.9 g/dL (28.0-37.0); MCV 78.7 fL (80.0-100.0); MONOCYTES 7.6 %; NUCLEATED RBCS 0 /100WBC; PLATELET COUNT* 181 thou/uL (150-400); POLYS 59.2 %; RBC 5.08 mil/uL (4.20-5.00); RDW-CV 14.9 % (10.5-14.5); WBC 5.8 thou/uL (4.0-11.0)
[2021-12-05 14:10] LABS: CALCIUM 9.8 mg/dL (8.5-10.1); CREATININE 1.2 mg/dL (0.6-1.3); POTASSIUM 4.1 mmol/L (3.5-5.1)
[2021-12-05 14:15] LABS: ALBUMIN 4.9 g/dL (3.4-5.0); TOTAL BILIRUBIN 0.4 mg/dL (<0.1-1.0); TOTAL PROTEIN 8.5 g/dL (6.4-8.2)
--- NOTE | 2021-12-05 17:58 | EKG ---
[place] [address] ELECTROCARDIOGRAM REPORT Name: JUSTINO CEDEÑO Room: [facility]- ADM IN [facility]#: [id number] Admission: 12/05/21 Attend Phys: Osiel Bob Discharge: Date of : 57 Date of Service: 12/05/21 1355 Report #: [id number] THIS REPORT FOR: //name// [facility] ED Test Date: 2021-12-05 Test Time: 13:55:44 Pat Name: JUSTINO CEDEÑO Department: Room: [facility] Gender: F National Sales Manager: SS : 1955 Requested By: Major Santizo Order Number: [id number] MD: Michael Nugent Measurements Intervals [place] Rate: 71 P: 63 [place]: 142 QRS: 17 QRSD: 95 T: 55 QT: 441 QTc: 480 Interpretive Statements Sinus rhythm Abnormal R-wave progression, early transition Borderline repolarization abnormality Compared to ECG 05/15/2021 13:30:44 No significant changes Electronically Signed On 12-05-2021 17:58:04 HISTOLOGICAL ILLUSTRATOR by Michael Nugent [email or web address] <ELECTRONICALLY SIGNED> By: Michael Nugent MD, FACC 12/05/21 1758 1355 1355 Michael Nugent MD, FAC /EPI
[2021-12-05 19:00] VITALS: BP 164/54
--- NOTE | 2021-12-05 19:10 | NUR ---
SPOKE TO DR AVILA, HE WILL PUT IN ORDERS
[2021-12-05 22:55] VITALS: BP 141/70
[2021-12-06] VITALS (8 sets, daily range): BP systolic 147–188; BP diastolic 61–80
[2021-12-06 04:59] LABS: ABSOLUTE EOSINOPHILS 0.1 thou/uL (0.0-0.7); ABSOLUTE MONOCYTES 0.3 thou/uL (0.0-1.2); ABSOLUTE NEUTROPHILS 1.6 thou/uL (1.6-8.1); BASOPHILS 0.7 %; EOSINOPHILS 2.7 %; HEMATOCRIT 33.9 % (37.0-47.0); MCHC 33.9 g/dL (28.0-37.0); MCV 79.8 fL (80.0-100.0); MONOCYTES 8.9 %; MPV 9.3 fl. (7.2-11.1); NUCLEATED RBCS 0 /100WBC; PLATELET COUNT* 118 thou/uL (150-400); POLYS 53.7 %; RBC 4.25 mil/uL (4.20-5.00); RDW-CV 15.2 % (10.5-14.5); WBC 2.9 thou/uL (4.0-11.0)
[2021-12-06 05:08] LABS: HEMOGLOBIN 11.5 gm/dL (12.0-15.0)
[2021-12-06 05:24] LABS: ALBUMIN 4.1 g/dL (3.4-5.0); CALCIUM 8.7 mg/dL (8.5-10.1); CREATININE 0.8 mg/dL (0.6-1.3); POTASSIUM 3.5 mmol/L (3.5-5.1); TOTAL BILIRUBIN 0.3 mg/dL (<0.1-1.0); TOTAL PROTEIN 7.1 g/dL (6.4-8.2)
[2021-12-06 05:43] LABS: % SATURATION 17 % (20-39); IRON 68 ug/dL (50-175)
[2021-12-06 07:17] LABS: ESR (SEDRATE) 30 mm/hr (0-30)
--- NOTE | 2021-12-06 16:49 | NUR ---
ALERT AND ORIENTED WITH PERIODS OF FORGETFULNESS. C/O CHEST PAIN PRESSURE AND DR AWARE. C/O FEELING NAUSEATED AT TIMES. STATES HAS LEFT ARM NUMBNESS AND BILATERAL LOWER EXTREMITIES NUMBNESS. IVF INFUSING WITHOUT DIFFICULTY. PLACED ON HEART MONITOR. ORIENTED TO ROOM AND BED CONTROLS. CALL LIGHT WITHIN REACH.
--- NOTE | 2021-12-06 18:55 | NUR ---
ADMISSION ASSESSMENT DONE CHARTED. TALKED WITH DR DE LEON REGARDING CHEST PRESSURE/PAIN. NTG PASTE APPLIED AND NTG PILL GIVEN SL. PAIN STATED PAIN BETTER NOW AND IS NOW 2 INSTEAD OF 5/6. WILL CONTINUE TO MONITOR. ON HEART MONITOR. CALL LIGHT WITHIN REACH. FALL PRECAUTIONS IN PLACE.
[2021-12-07 00:13] VITALS: BP 147/56
[2021-12-07 04:15] VITALS: BP 172/75
--- NOTE | 2021-12-07 04:55 | NUR ---
PATIENT HAS REMAINED ALERT AND ORIENTED X 4 WITH VERY SLIGHT FORGETFULNESS AT TIMES. CONTINUED CHEST PAIN AT FIRST ROUNDS. NO ARM NUMBNESS WITH THIS EPISODE. 2 DOSES SUBLING NITRO PROVIDED WITH RESOLUTION. SECOND DOSE CAUSED HEADACHE AND NAUSEA. MEDICATED WITH PAIN AND NAUSEA MEDICATION FOR COMPLETE RESOLUTION. ICE PACK ALSO UTILIZED FOR HEADACHE AT PATIENT REQUEST. VITAL SIGNS STABLE WITH HYPERTENSION. UP TO BR CGA FOR VOIDS. ONE SMALL LIGHT BROWN BM WITHOUT EVIDENCE OF BLEEDING. MEDS/IVF'S AND PROTONIX DRIP PROVIDED ORDERED. FALL PRECAUTIONS IN PLACE. CONTINUE TO MONITOR.
[2021-12-07 05:50] LABS: ALBUMIN 3.6 g/dL (3.4-5.0); CALCIUM 8.2 mg/dL (8.5-10.1); CREATININE 0.7 mg/dL (0.6-1.3); POTASSIUM 3.4 mmol/L (3.5-5.1); TOTAL BILIRUBIN 0.3 mg/dL (<0.1-1.0); TOTAL PROTEIN 6.5 g/dL (6.4-8.2)
[2021-12-07 08:00] VITALS: BP 175/83
--- NOTE | 2021-12-07 09:45 | CON ---
[address] [address] CONSULTATION Name: JUSTINO CEDEÑO Room: [address] ADM IN M.R.#: [id number] Admission: 12/05/21 Attend Phys: Jordan Dominguez Discharge: Date of : 57 Report #: [id number] THIS REPORT FOR: cc: Hilda Mejia MD, Jayne Lora MD TonasketOsorio MD [facility] ~ DATE OF CONSULTATION: 12/06/2021 CARDIOLOGY CONSULTATION HISTORY OF PRESENT ILLNESS: I was asked by Dr. Bob and the ER physician as well to see this 66-year-old white female in Cardiology consultation for evaluation and treatment of chest pain. She also has EKG changes. She is known to have coronary artery disease. She had a coronary stent last May. She is usually followed by Dr. Nugent. She had a stent placed in her proximal to mid LAD last May. There were no other coronary lesions seen at that time. Her current issues began about 10 days ago when she started having nausea and vomiting. She has vomited since then. She finally came in when she started vomiting up blood. It is not clear that she has had any melena; however. When she first came in, her EKG showed only minimal ST segment depression in multiple leads and was fairly nonspecific appearing. This morning, she developed chest pain; however, it was not following a heavy vomiting episode. She did say she spit up a little bit, but there was no heavy vomiting or retching. She described the chest pain this morning as cutting. She says it was a 10 on a scale of 10. Her previous coronary pain she described as a pressure. It was not as severe as this pain. She had pain for about 3 hours before she finally received a nitroglycerin and it began to relieve the pain. She does have multiple other medical problems. PAST MEDICAL HISTORY: Includes hypercholesterolemia, essential hypertension, diabetes, COPD, 5 myocardial infarctions and 4 CVAs. She also has history of seizures. She has also had abdominal pain since this all started. Noticed her hemoglobin this morning was 11.5. ALLERGIES: SHE HAS MULTIPLE ALLERGIES INCLUDING LISINOPRIL, CICLOPIROX, MORPHINE, CONTRAST DYE, PENICILLINS AND TIOTROPIUM. MEDICATIONS: At home include Plavix 75 mg daily and diltiazem 180 mg b.i.d. Additionally, she is on Imdur 30 mg daily, methocarbamol 750 mg p.r.n., p.r.n. nitroglycerin, gabapentin 600 mg t.i.d., Nexium 40 mg daily, Benadryl 50 mg at bedtime, levetiracetam 1500 mg b.i.d., carvedilol 6.25 mg b.i.d., Eliquis 2.5 mg b.i.d., clonidine 0.1 mg b.i.d., insulin NovoLog 70/30 7 units with meals, atorvastatin 40 mg daily, gemfibrozil 600 mg b.i.d., Bentyl 10 mg daily, glargine insulin 24 units at bedtime, colestipol 1 gram b.i.d., loperamide or Imodium 2 mg p.r.n. [facility] [address] [place] [address] CONSULTATION Name: JUSTINO CEDEÑO Room: [address] IN ..#: [id number] Admission: 12/05/21 Attend Phys: Jordan Dominguez Discharge: Date of : 57 Report #: [id number] SOCIAL HISTORY: She does not smoke, drink or use illegal drugs. She does have a past history of smoking, however. FAMILY HISTORY: Remarkable for coronary heart disease and strokes. PHYSICAL EXAMINATION: GENERAL: She presents as a well-developed, well-nourished white female in some distress. VITAL SIGNS: Her pulse was 100 and regular, blood pressure 169/63, respirations 18 and regular, temperature is 36.3, O2 sat was 99% on 2 liters of oxygen. HEENT: Her head was atraumatic. Eyes were clear. NECK: Supple. There is no jugular venous distention or hepatojugular reflux. Thyroid is not enlarged. There is no adenopathy. SKIN: Warm and dry. Mucous membranes are moist. LUNGS: Clear to auscultation and percussion. HEART: Revealed normal first and second heart sounds. Heart tones are somewhat distant. There were no murmurs, rubs, thrills, heaves or gallops. PMI is nondisplaced. Rhythm was regular. Rate was about 100. ABDOMEN: Soft and flat, but diffusely tender, especially in the mid abdomen. EXTREMITIES: Reveal no cyanosis, clubbing or edema. LABORATORY DATA: Her EKG done this morning at 9:55 showed sinus tachycardia, rate was 106. There was significant ST segment depression of about 2 mm in V2, V3, V4, V5 and V6. She has had multiple negative troponins already. Chest x-ray was apparently not done. IMPRESSION: 1. Chest pain, possibly coronary, but possibly due to her gastrointestinal issues. 2. Abnormal EKG. 3. Upper gastrointestinal bleed, possibly secondary to a Dulce Maria-Alfredo tear. 4. Hypercholesterolemia. 5. Coronary artery disease. 6. Status post coronary stent in her proximal to mid LAD. 7. Essential hypertension. 8. Insulin-dependent diabetes mellitus. 9. Chronic obstructive pulmonary disease. 10. Status post multiple myocardial infarctions. 11. Status post multiple cerebrovascular accidents. 12. Seizure disorder. RECOMMENDATIONS: I will get her blood pressure down with IV metoprolol and p.r.n. sublingual nitroglycerin and I ____ nitroglycerin paste[place] [address] CONSULTATION Name: JUSTINO CEDEÑO Room: [address] IN [facility]#: [id number] Admission: 12/05/21 Attend Phys: Jordan Dominguez Discharge: Date of : 57 Report #: [id number] chest x-ray. I think her chest pain is probably not ischemic, it is not like her previous ischemic chest pain. I think she is probably reasonable candidate to have an endoscopy. Thanks very much for asking me to see the patient if there are any questions, please feel free to contact me. <ELECTRONICALLY SIGNED> By: Osorio Spencer MD, [facility] 12/07/21 0945 [id number] [id number]. Luis A Spencer MD, FACC /nt
[2021-12-07 11:51] LABS: ABSOLUTE LYMPHOCYTES 0.9 thou/uL (0.8-5.3); ABSOLUTE MONOCYTES 0.2 thou/uL (0.0-1.2); ABSOLUTE NEUTROPHILS 1.1 thou/uL (1.6-8.1); BASOPHILS 0.8 %; HEMATOCRIT 28.9 % (37.0-47.0); LYMPHOCYTES 39.6 %; MCH 26.9 pg (26.0-34.0); MCHC 34.6 g/dL (28.0-37.0); MCV 77.7 fL (80.0-100.0); MONOCYTES 8.2 %; MPV 8.5 fl. (7.2-11.1); NUCLEATED RBCS 0 /100WBC; PLATELET COUNT* 110 thou/uL (150-400); POLYS 49.4 %; RBC 3.72 mil/uL (4.20-5.00); RDW-CV 14.8 % (10.5-14.5); WBC 2.3 thou/uL (4.0-11.0)
[2021-12-07 12:08] VITALS: BP 146/60
--- NOTE | 2021-12-07 12:45 | EKG ---
[place] [address] ELECTROCARDIOGRAM REPORT Name: JUSTINO CEDEÑO Room: [address] ADM IN M.R.#: [id number] Admission: 12/05/21 Attend Phys: Osiel Bob Discharge: Date of : 57 Date of Service: 12/06/21 0955 Report #: [id number] THIS REPORT FOR: //name// [facility] ED Test Date: 2021-12-06 Test Time: 09:55:21 Pat Name: JUSTINO CEDEÑO Department: Room: [address] Gender: F Clinical Studies Specialist: DAT : 1955 Requested By: Osorio Spencer Order Number: [id number] MD: Luis A Spencer Measurements Intervals [place] Rate: 106 P: 68 TN: 101 QRS: -12 QRSD: 101 T: 34 QT: 362 QTc: 481 Interpretive Statements Sinus tachycardia Consider RVH w/ secondary repol abnormality Repol abnrm suggests ischemia, diffuse leads Compared to ECG 12/05/2021 13:55:44 Possible ischemia now present Sinus rhythm no longer present Electronically Signed On 12-07-2021 12:45:41 NETWORK SYSTEMS INTEGRATOR by Luis A Spencer [email or web address] <ELECTRONICALLY SIGNED> By: Osorio Spencer MD, [facility] 12/07/21 1245 0955 0955 Osorio Spencer MD, [facility] /EPI
[2021-12-07 15:43] VITALS: BP 151/71
--- NOTE | 2021-12-07 18:45 | NUR ---
PT CLEARED FOR EGD TOMORROW. NPO AFTER MIDNIGHT.
[2021-12-07 19:30] VITALS: BP 155/62
[2021-12-08 00:20] VITALS: BP 176/66
[2021-12-08 04:33] VITALS: BP 146/68
[2021-12-08 04:34] VITALS: BP 173/64
--- NOTE | 2021-12-08 04:49 | NUR ---
PATIENT HAS REMAINED ALERT AND ORIENTED X 4 THROUGHOUT THE SHIFT AND RESTING QUIETLY ON HOURLY ROUNDS. HAD A SEVERE HEADACHE WITH NAUSEA AT SHIFT CHANGE FOR WHICH SHE HAD BEEN MEDICATED. THIS WAS RESOLVING WITH FIRST ROUNDS. NO FURTHER HEADACHE, NAUSEA OR CHEST PAIN THIS SHIFT. VITAL SIGNS STABLE ON ROOM AIR WITH HYPERTENSION. SR ON THE MONITOR. NPO AT MIDNIGHT FOR GI PROCEDURE TODAY. MOUTH SWABS AND MOISTURIZER PROVIDED. FALL PRECAUTIONS IN PLACE. CONTINUE TO MONITOR.
[2021-12-08 05:15] LABS: ABSOLUTE EOSINOPHILS 0.1 thou/uL (0.0-0.7); ABSOLUTE LYMPHOCYTES 1.1 thou/uL (0.8-5.3); ABSOLUTE MONOCYTES 0.2 thou/uL (0.0-1.2); ABSOLUTE NEUTROPHILS 1.2 thou/uL (1.6-8.1); BASOPHILS 0.5 %; HEMOGLOBIN 10.5 gm/dL (12.0-15.0); LYMPHOCYTES 41.7 %; MCH 26.8 pg (26.0-34.0); MCV 78.8 fL (80.0-100.0); MONOCYTES 9.3 %; MPV 8.5 fl. (7.2-11.1); NUCLEATED RBCS 0 /100WBC; PLATELET COUNT* 131 thou/uL (150-400); POLYS 45.5 %; RBC 3.93 mil/uL (4.20-5.00); RDW-CV 14.9 % (10.5-14.5); WBC 2.5 thou/uL (4.0-11.0)
[2021-12-08 05:29] LABS: CALCIUM 8.4 mg/dL (8.5-10.1); CREATININE 0.6 mg/dL (0.6-1.3); POTASSIUM 3.1 mmol/L (3.5-5.1)
[2021-12-08 08:00] VITALS: BP 177/67
--- NOTE | 2021-12-08 10:02 | CON ---
[facility] [address] [place] [address] CONSULTATION Name: JUSTINO CEDEÑO Room: [facility]- ADM IN M.R.#: [id number] Admission: 12/05/21 Attend Phys: Jordan Dominguez Discharge: Date of : 57 Report #: [id number] THIS REPORT FOR: cc: Hilda Mejia MD, Jayne Lora MD Vardakis, Gregory DO cc: Luis A Spencer MD [facility] DATE OF CONSULTATION: 12/06/2021 REFERRING PHYSICIAN: Dr. Osiel Bob. REASON FOR CONSULTATION: Hematemesis. IMPRESSION: 1. Nausea, vomiting with associated hematemesis. 2. Coronary artery disease with current complaints of chest discomfort and chest pain, suspicious for angina. 3. Paroxysmal atrial fibrillation with patient being on chronic Plavix, chronic Eliquis due to history of previous strokes. 4. Coronary artery disease with previous interventions including stent placement and chronic use of Plavix. RECOMMENDATIONS: 1. At the present time, the patient is having severe chest discomfort, chest pain, reminiscent to pain related to angina. For this reason, I have discussed the case with Dr. Major Santizo and asked Cardiology to become involved with her care to determine what needs to be done with regards to the same. 2. Once the patient has completed cardiovascular evaluation, we can certainly proceed with endoscopic studies once they refer her for the same. 3. I have discussed the plans with Dr. Santizo and the nursing staff and we will continue to follow the patient while in the hospital. HISTORY OF PRESENT ILLNESS: The patient is a 66-year-old white female with underlying coronary artery disease and paroxysmal atrial fibrillation, is on chronic Plavix and Eliquis who presented to the Emergency Room with complaints of rather severe abdominal pain associated with nausea, vomiting and hematemesis. I tried to get more history out of the patient but because of problem with chest discomfort, chest pain that was severe, I was unable to get much more from her history. Once she had these complaints, I went to our ER nurse and the patient had emergent evaluation by EKGs, troponins and cardiovascular evaluation. Most of the history is obtained from the patient's ER records and history and physical. Apparently, she has been throwing up blood off and on for the last 10 days. She has had some mild dark tarry stools and has some dizziness. There has not been [place] [address] CONSULTATION Name: JUSTINO CEDEÑO Room: [address] IN [facility]#: [id number] Admission: 12/05/21 Attend Phys: Jordan Dominguez Discharge: Date of : 57 Report #: [id number] bleeding. She has a history of chronic acid reflux which she takes esomeprazole, we will likely need to confirm if that is the case. She has underlying irritable bowel and is on medications for the same and so has some element of diarrhea since having her gallbladder removed. I do not know whether or not she has ever had a colonoscopy in the past. She is currently having chest discomfort and chest pain. For this reason, we will have a cardiovascular evaluation done first. ALLERGIES: LISINOPRIL, PENLAC, MORPHINE, CONTRAST DYE, WHICH CAUSES HIVES, PENICILLINS AND TIOTROPIUM. MEDICATIONS: Listed include Plavix, diltiazem, isosorbide mononitrate, methocarbamol, nitroglycerin, Neurontin, Nexium, Benadryl, levetiracetam, carvedilol, apixaban, clonidine, insulin, atorvastatin, gemfibrozil, dicyclomine, Lantus and NovoLog insulin, colestipol and loperamide. PAST MEDICAL HISTORY: Remarkable for coronary artery disease with previous stents placed in the past, last of which was in May of last year. She has a history of hypertension, hyperlipidemia. She has had previous strokes, likely related to paroxysmal atrial fibrillation for which she is on chronic Eliquis. She has underlying diabetes, seizure disorder, irritable bowel. History of sleep apnea, it is unclear whether she uses a CPAP machine or not. She has had previous hysterectomy, cholecystectomy and hernia repairs. SOCIAL HISTORY: The patient previously smoked, quit after she had a first heart attack. No alcohol. PHYSICAL EXAMINATION: GENERAL: Revealed a distraught 66-year-old white female whose vital signs are stable. CARDIOPULMONARY: Revealed a regular rate and rhythm. LUNGS: Clear. ABDOMEN: Soft, not tender. No rebound or guarding noted. LABORATORY DATA: Laboratory tests from the revealed a white count of 5.8, hemoglobin 13.5, platelet count 181,000. MCV is 78.7, RDW is 14.9. Sodium 138, potassium 4.1, chloride 101, bicarbonate 22, BUN is 31 and elevated, creatinine 1.2 for close to a ratio of 30:1. Total bilirubin 0.4, alkaline phosphatase is 151. Her AST is 33, ALT 21, albumin is 4.9. However, she is dry. With hydration, her CBC from the revealed a white count 2.9, hemoglobin 11.5, platelet count 180,000, MCV of 79.8 and an RDW of 15.2. Her BUN and creatinine were down to 24 and 0.8. Alkaline phosphatase still mildly elevated at 132. [facility] [address] [place] [address] CONSULTATION Name: JUSTINO CEDEÑO Room: [address] ADM IN .R.#: [id number] Admission: 12/05/21 Attend Phys: Jordan Dominguez Discharge: Date of : 57 Report #: [id number] scan of the abdomen and pelvis performed on 12/05 was reviewed and revealed postsurgical change of previous cholecystectomy. She has some diverticulosis without diverticulitis. There is no focal inflammatory changes, nothing of major concern on CT scan. DISCUSSION: At the present time, the patient is still having problems with chest discomfort, chest pain, suspicious for angina. We will hold off on any endoscopic studies at this time and await cardiovascular evaluation before proceeding with the same. I have discussed these plans with the patient and she is agreeable to same. In addition, we will need to find out if she has ever had a colonoscopy in the past because she is over the age of 61. This may need to be done while she is in the hospital, all depending on how things look with regards to her other issues. <ELECTRONICALLY SIGNED> By: Tomasz Haile DO 12/08/21 1002 1008 [id number] Haile DO /olga
--- NOTE | 2021-12-08 11:49 | NUR ---
Nutrition: Pt admitted with GIB. Consult received for wt loss, however pt's wt is usually ~166#, and current wt is 166# - no apparent wt loss. She is NPO for EGD currently, not in room. Meds: insulin, metoprolol, carvedilol. Labs: BG 129, alb 3.6. H/o DM, COPD, CVA, UT. Hopeful for timely diet advancement and good po intake. BMI WNL. Appears at low nutrition risk.
[2021-12-08 15:49] VITALS: BP 189/63
[2021-12-08 16:06] LABS: INR 1.1; PROTIME 10.8 Seconds (9.20-11.50)
--- NOTE | 2021-12-08 16:07 | NUR ---
Pt started complaining of left wrist pain after returning from EGD. Pt rates the pain 10/10 and describes it at ''stabbing and pulsating'' pain. No swelling, redness, or warmth noted to the area of complaint upon assessment, but pt guarding the area and flinching while this nurse was assessing it. Dr. Jo notified of pt complaint. Per Dr. Jo left wrist xr to be ordered and Hydrocodone/Acetaminophen 5/325 Q6H PRN for pain. Pt allergic to Morphine, but states she has had Hydrocodone/Acetaminophen before with no allergic reactions to it. X-ray and medication ordered.
--- NOTE | 2021-12-08 17:21 | NUR ---
Attempted to see pt to complete assessment x2 - however pt is in a medical procedure/test today. Pt is a BP pt. CM to continue to follow for discharge planning.
[2021-12-08 21:30] VITALS: BP 139/53
[2021-12-09] VITALS (8 sets, daily range): BP systolic 94–172; BP diastolic 44–64
[2021-12-09 05:27] LABS: HEMATOCRIT 34.9 % (37.0-47.0); HEMOGLOBIN 11.7 gm/dL (12.0-15.0); MCH 26.4 pg (26.0-34.0); MCHC 33.5 g/dL (28.0-37.0); MCV 78.7 fL (80.0-100.0); MPV 8.6 fl. (7.2-11.1); RBC 4.43 mil/uL (4.20-5.00); RDW-CV 15.3 % (10.5-14.5); WBC 3.2 thou/uL (4.0-11.0)
[2021-12-09 05:48] LABS: CALCIUM 9.5 mg/dL (8.5-10.1); CREATININE 1.1 mg/dL (0.6-1.3)
--- NOTE | 2021-12-09 08:05 | CON ---
[address] [address] CONSULTATION Name: JUSTINO CEDEÑO Room: [address] ADM IN M.R.#: [id number] Admission: 12/05/21 Attend Phys: Jordan Dominguez Discharge: Date of : 57 Report #: [id number] THIS REPORT FOR: cc: Hilda Mejia MD, Jayne Lora MD BiggsOsorio MD [facility] ~ DATE OF CONSULTATION: 12/07/2021 CARDIOLOGY HOSPITAL FOLLOWUP VISIT HISTORY OF PRESENT ILLNESS: The patient feels well today. She denies any chest pain. She is feeling much better. She did have more chest pain last night, but that chest pain went away when she got started on nitroglycerin paste. She did have overall mild bump in her troponins. This is a super sensitive troponin the latest one from early a.m. this morning was 89, that is up from 14 yesterday. I suspect she has had so-called type 2 infarct are very small non-ST segment elevation LA. She is having no further pain. She has had no more GI bleeding. She has not had any hematemesis or melena. Today, she looks well, feels well and seems to be doing well. PHYSICAL EXAMINATION: VITAL SIGNS: Her pulse was 82, blood pressure 175/83, temperature 36.5, respirations 16, and her O2 sat was 97% on room air. NECK: There was no jugular venous distention or hepatojugular reflux. LUNGS: Clear to auscultation and percussion. HEART: Revealed normal first and second heart sound. There is soft S4. There is no S3. There are no murmurs, rubs, thrills or gallops. PMI is not displaced. ABDOMEN: Soft, flat and diffusely tender. EXTREMITIES: Reveal no cyanosis, clubbing or edema. IMPRESSION: 1. Chest pain, which likely represents either a type 2 infarct secondary to severe pain associated with an esophageal process or a possible non-ST elevation LA. I favor type 2 infarct. 2. Abnormal EKG. 3. Upper gastrointestinal bleed. 4. Hypercholesterolemia. 5. Coronary artery disease. 6. Status post coronary stent. 7. Essential hypertension. 8. Insulin-dependent diabetes mellitus. 9. Chronic obstructive pulmonary disease. RECOMMENDATIONS: I would continue her current therapy [place] [address] CONSULTATION Name: JUSTINO CEDEÑO Room: [address] IN [facility]#: [id number] Admission: 12/05/21 Attend Phys: Jordan Dominguez Discharge: Date of : 57 Report #: [id number] nitrates and I think it is reasonable to proceed tomorrow with her ____. Thank you very much for asking me to follow up with the patient. If there are any questions, please feel free to contact me. <ELECTRONICALLY SIGNED> By: Osorio Spencer MD, FAC 12/09/21 0805 1036 [id number]. Luis A Spencer MD, [facility] /nt
[2021-12-09 14:31] LABS: CALCIUM 9.1 mg/dL (8.5-10.1); CREATININE 0.9 mg/dL (0.6-1.3)
[2021-12-09 14:34] LABS: MAGNESIUM 1.1 mg/dL (1.8-2.4); PHOSPHORUS* 4.1 mg/dL (2.5-4.9)
[2021-12-09 14:44] LABS: POTASSIUM 2.6 mmol/L (3.5-5.1)
--- NOTE | 2021-12-09 19:01 | NUR ---
pt complained of severe abdominal pain that she describes as ''ripping from the inside out'' and that also was causing some back discomfort. administered a dose of acetaminophen/hydrocodone 5/325 with no improvement. pt was crying and dry heaving and kept yelling ''help me, help me''. message sent to Dr. Jo and received call from wire rope fabrication supervisor Dr. Bob who advised ordering Toradol 10 Q6H PRN. Toradol ordered.
[2021-12-10 00:53] VITALS: BP 96/43
[2021-12-10 04:00] VITALS: BP 99/57
[2021-12-10 06:13] LABS: MAGNESIUM 1.4 mg/dL (1.8-2.4); POTASSIUM 3.3 mmol/L (3.5-5.1)
[2021-12-10 08:00] VITALS: BP 109/52
--- NOTE | 2021-12-10 08:07 | NUR ---
PT IS ABLE TO COMMUNICATE HER NEEDS TO STAFF EFFECTIVELY. CURRENT PAIN MEDICATION REGIMEN HAS BEEN ADEQUATE FOR CONTROLLING HER PAIN UP TO 0700 TODAY.
--- NOTE | 2021-12-10 09:51 | NUR ---
Pt is admitted to the hospital on 12/05/21 with GI Bleed. Pt is a BPCI pt. Pt is alert and oriented x3. Pt reports she lives with her spouse. Pt was previously independent with ambulation and ADL's. Pt reports she has no hx of SNF/DME/ or HH. Pt does have a walker, cane, and commode. Discussed HH - but pt is adamantly refusing the need for HH - as she does not want strangers in her home and her dog does not like people. D/c Plan/BPCI pt: Home with spouse (Currently refusing HH). CM to continue to follow for discharge planning.
[2021-12-10 12:43] VITALS: BP 109/52
--- NOTE | 2021-12-10 14:44 | NUR ---
DISCHARGE ORDERS RECEIVED. DISCHARGE INSTRUCTIONS, CARE NOTES, AND FOLLOW UP APPTS GIVEN TO PT. PT COMMUNICATES UNDERSTANDING OF DISCHARGE TEACHING. IV AND OCCUPATIONAL HEALTH MANAGER REMOVED. PT DISCHARGED WITH ALL BELONGINGS AND PAPERWORK VIA WHEELCHAIR WITH NURSING STAFF TO SPOUSE OWN PERSONAL VEHICLE.
== END 2021-12-10 14:52 | disposition home or self-care (01) | DRG 377 ==
LOC: M.ERS 10:20 → M.2W 15:22 → M.TBA-ER 15:22 → M.2W 12-06 15:35
PROVIDERS: Emergency Medicine Emergency Medical Services; Internal Medicine; Internal Medicine Gastroenterology; ADMIT Internal Medicine; ATTEND Internal Medicine
PROC: 0W3P8ZZ Control Bleeding in Gastrointestinal Tract, Via Natural or Artificial Opening Endoscopic (ICD-10-PCS; principal; 2021-12-08)
PROC: 0DJD8ZZ Inspection of Lower Intestinal Tract, Via Natural or Artificial Opening Endoscopic (ICD-10-PCS; 2021-12-09)
DX: K57.31 Diverticulosis of large intestine without perforation or abscess with bleeding (principal); N17.0 Acute kidney failure with tubular necrosis; R65.11 Systemic inflammatory response syndrome (SIRS) of non-infectious origin with acute organ dysfunction; D62 Acute posthemorrhagic anemia; D68.9 Coagulation defect, unspecified; Z20.822 Contact with and (suspected) exposure to COVID-19; E78.00 Pure hypercholesterolemia, unspecified; J44.9 Chronic obstructive pulmonary disease, unspecified; K26.4 Chronic or unspecified duodenal ulcer with hemorrhage; I12.9 Hypertensive chronic kidney disease with stage 1 through stage 4 chronic kidney disease, or unspecified chronic kidney disease; E11.22 Type 2 diabetes mellitus with diabetic chronic kidney disease; N18.30 Chronic kidney disease, stage 3 unspecified; I25.10 Atherosclerotic heart disease of native coronary artery without angina pectoris; E87.6 Hypokalemia; G40.909 Epilepsy, unspecified, not intractable, without status epilepticus; I48.0 Paroxysmal atrial fibrillation; Z90.49 Acquired absence of other specified parts of digestive tract; I25.2 Old myocardial infarction; Z86.73 Personal history of transient ischemic attack (TIA), and cerebral infarction without residual deficits; Z88.0 Allergy status to penicillin; Z88.8 Allergy status to other drugs, medicaments and biological substances; Z88.6 Allergy status to analgesic agent; Z91.041 Radiographic dye allergy status; Z87.891 Personal history of nicotine dependence; Z79.4 Long term (current) use of insulin; Z95.5 Presence of coronary angioplasty implant and graft; Z79.899 Other long term (current) drug therapy